=== PATIENT | female | born 1965 ===

== ENCOUNTER 2017-09-09 17:42 | Inpatient (IN) ==
[2017-09-09] MEDS ORDERED: MORPHINE 2 MG/1 ML SYRINGE IV PRN (20:34)
[2017-09-09 21:00] LABS: Apearance,Urine CLOUDY (Clear); Bacteria,Urine Many /HPF (Few); Bilirubin,Urine Negative (Negative); Blood, Urine Large mg/dL (Negative); Glucose,Urine (UA) Negative (Negative); Hyaline Casts,Urine 87 /LPF (0-3); Ketones,Urine Negative (Negative); Nitrite,Urine Negative (Negative); Protein,Urine 100 MG/DL; RBC,Urine 22 /HPF (0-4); Squamous Epithelial Cell,Urine Occasional /HPF (0-10); Urine Color Amber (Yellow); Urine Specific Gravity 1.013 (1.001-1.035); Urine Urobilinogen < 2.0 EU/DL (0.2-1.0); WBC,Urine 1255 /HPF (0-6)
[2017-09-09] MEDS ORDERED: SODIUM CHLORIDE 0.9% 1,000 ML IV SCH (21:00)
[2017-09-09 21:33] LABS: Basophils % 0.2 % (0.0-0.8); Eosinophils # 0.1 10*3/uL (0.0-0.87); Eosinophils % 1.5 % (0.00-10.9); Hematocrit 28.6 VOL% (35.7-47.0); Hemoglobin 9.2 GM/DL (12.0-16.0); Immature Granulocytes % 0.6 %; Immature Granulocytes Absolute 0.04 #; Lymphocytes # 1.1 10*3/uL (1.4-4.0); Lymphocytes % 17.1 % (21.3-54.2); Mean Corpuscular HGB Conc 32.2 GM/DL (32-36); Mean Corpuscular Hemoglobin 31 PG (27-34); Mean Corpuscular Volume 95.7 FL (87-102); Mean Platelet Volume 10.3 FL (9.6-12.0); Monocytes # 0.7 10*3/uL (0.11-0.8); Monocytes % 9.8 % (1.7-12.7); Neutrophils # 4.7 10*3/uL (1.4-7.4); Neutrophils % 70.8 % (38.7-73.9); Platelet Count 217 T/CUMM (130-400); Red Blood Count 2.99 MC/CUMM (3.8-5.5); Red Cell Distribution Width 13.3 % (9.3-17.3); White Blood Count 6.6 T/CUMM (4-12)
[2017-09-09] MEDS ORDERED: DEXTROSE 50% 25 GM/50 ML VIAL IV PRN (21:48)
[2017-09-09] MEDS ORDERED: GLUCAGON 1 MG VIAL IM PRN (21:48)
[2017-09-09 21:58] LABS: Alanine Aminotransferase 29 U/L (13-56); Albumin 2.6 G/DL (3.4-5.0); Alkaline Phosphatase 134 U/L (45-117); Aspartate Amino Transferase 21 U/L (0-37); Bilirubin,Total < 0.39 MG/DL (0.2-1.0); Blood Urea Nitrogen 114 MG/DL (7-18); Calcium 7.2 MG/DL (8.5-10.1); Glucose 131 MG/DL (74-106); Osmolality,Calculated 310.8 MOS/KG (273-304); Potassium 5.3 MMOL/L (3.5-5.1); Sodium 137 MMOL/L (136-145); Total Protein 6.7 G/DL (6.4-8.3)
[2017-09-09] MEDS: SODIUM CHLORIDE 0.9% 1,000 ML IV SCH ×2 (21:59→22:28)
[2017-09-09 22:06] LABS: VLDL CHOLESTEROL 81.2 MG/DL
[2017-09-09] MEDS: INSULIN LISPRO 100 UNIT/ML SUBCUT SCH (22:28)
[2017-09-09] MEDS: ENOXAPARIN 30 MG/0.3 ML SYRINGE SUBCUT SCH (22:31)
[2017-09-10] MEDS: ONDANSETRON 4 MG/2 ML VIAL IV PRN ×2 (00:34→03:49)
[2017-09-10] MEDS: INSULIN LISPRO 100 UNIT/ML SUBCUT SCH ×6 (03:36→21:59)
[2017-09-10] MEDS: SODIUM CHLORIDE 0.9% 1,000 ML IV SCH ×2 (03:49→06:17)
[2017-09-10 05:39] LABS: Basophils % 0.2 % (0.0-0.8); Eosinophils % 0.6 % (0.00-10.9); Hematocrit 27.3 VOL% (35.7-47.0); Hemoglobin 9.1 GM/DL (12.0-16.0); Immature Granulocytes % 0.9 %; Immature Granulocytes Absolute 0.06 #; Lymphocytes % 15.1 % (21.3-54.2); Mean Corpuscular HGB Conc 33.3 GM/DL (32-36); Mean Corpuscular Hemoglobin 31 PG (27-34); Mean Corpuscular Volume 93.5 FL (87-102); Mean Platelet Volume 10.4 FL (9.6-12.0); Monocytes # 0.6 10*3/uL (0.11-0.8); Neutrophils # 4.7 10*3/uL (1.4-7.4); Neutrophils % 74.2 % (38.7-73.9); Platelet Count 225 T/CUMM (130-400); Red Blood Count 2.92 MC/CUMM (3.8-5.5); Red Cell Distribution Width 13.4 % (9.3-17.3); White Blood Count 6.3 T/CUMM (4-12)
[2017-09-10 06:14] LABS: Calcium 7.3 MG/DL (8.5-10.1); Osmolality,Calculated 311.5 MOS/KG (273-304); Potassium 5.4 MMOL/L (3.5-5.1)
[2017-09-10] MEDS: LEVOTHYROXINE 50 MCG TABLET PO SCH (06:17)
[2017-09-10] MEDS ORDERED: SODIUM POLYSTYRENE SULFATE 15 GM/60 ML BOTTLE PO ONE (08:32)
[2017-09-10] MEDS: SODIUM BICARB INJ 100 MEQ in DEXTROSE 5% 1,000 ML IV SCH ×3 (10:32→21:10)
[2017-09-10] MEDS: INSULIN GLARGINE 100 UNIT/ML SUBCUT SCH (10:32)
[2017-09-10] MEDS: PANTOPRAZOLE 40 MG TABLET PO SCH (10:33)
[2017-09-10] MEDS: LEVOTHYROXINE 100 MCG VIAL IV SCH (10:33)
[2017-09-10] MEDS: THIAMINE 200 MG/2 ML VIAL IV SCH (10:35)
[2017-09-10 12:01] LABS: Pt O2 Delivery Device Room Air
[2017-09-10 12:02] LABS: ABG Base Excess -18.2 MMOL/L (-2.5-2.5); ABG Oxygen Saturation 97.6 % (95-100); ABG PCO2 25.7 MM HG (35-48); ABG PO2 143.5 MM HG (80-95); ABG TCO2 9.7 MMOL/L (23-27)
[2017-09-10] MEDS: ENOXAPARIN 30 MG/0.3 ML SYRINGE SUBCUT SCH (21:58)
[2017-09-11] MEDS: INSULIN LISPRO 100 UNIT/ML SUBCUT SCH ×6 (01:32→22:04)
[2017-09-11] MEDS: SODIUM BICARB INJ 100 MEQ in DEXTROSE 5% 1,000 ML IV SCH ×4 (03:18→21:30)
[2017-09-11 05:02] LABS: Basophils % 0.3 % (0.0-0.8); Eosinophils # 0.2 10*3/uL (0.0-0.87); Eosinophils % 3.2 % (0.00-10.9); Hematocrit 22.5 VOL% (35.7-47.0); Hemoglobin 7.6 GM/DL (12.0-16.0); Immature Granulocytes % 0.5 %; Immature Granulocytes Absolute 0.03 #; Lymphocytes # 1.4 10*3/uL (1.4-4.0); Lymphocytes % 21.8 % (21.3-54.2); Mean Corpuscular HGB Conc 33.8 GM/DL (32-36); Mean Corpuscular Hemoglobin 31 PG (27-34); Mean Corpuscular Volume 90.4 FL (87-102); Mean Platelet Volume 12.4 FL (9.6-12.0); Monocytes # 0.8 10*3/uL (0.11-0.8); Monocytes % 11.7 % (1.7-12.7); Neutrophils % 62.5 % (38.7-73.9); Red Blood Count 2.49 MC/CUMM (3.8-5.5); Red Cell Distribution Width 13.1 % (9.3-17.3); White Blood Count 6.5 T/CUMM (4-12)
[2017-09-11 05:18] LABS: Platelet Count 109 T/CUMM (130-400)
[2017-09-11 05:32] LABS: Alanine Aminotransferase 18 U/L (13-56); Alkaline Phosphatase 83 U/L (45-117); Aspartate Amino Transferase 15 U/L (0-37); Bilirubin,Total < 0.39 MG/DL (0.2-1.0); Blood Urea Nitrogen 83 MG/DL (7-18); Calcium 7.2 MG/DL (8.5-10.1); Glucose 133 MG/DL (74-106); Osmolality,Calculated 309.1 MOS/KG (273-304); Potassium 3.5 MMOL/L (3.5-5.1); Sodium 142 MMOL/L (136-145); Total Protein 5.7 G/DL (6.4-8.3)
[2017-09-11 05:38] LABS: Giant Platelets Few; Hypochromasia 1+; Microcytosis Slight; Ovalocytes Slight; Platelet Estimate Decreased
[2017-09-11] MEDS: LEVOTHYROXINE 100 MCG VIAL IV SCH (06:28)
[2017-09-11] MEDS: LEVOTHYROXINE 50 MCG TABLET PO SCH (06:29)
[2017-09-11] MEDS: PANTOPRAZOLE 40 MG TABLET PO SCH (08:17)
[2017-09-11] MEDS: THIAMINE 200 MG/2 ML VIAL IV SCH (08:17)
[2017-09-11] MEDS: INSULIN GLARGINE 100 UNIT/ML SUBCUT SCH (08:17)
[2017-09-11] MEDS ORDERED: GLUCAGON 1 MG VIAL IM PRN (09:34)
[2017-09-11] MEDS ORDERED: DEXTROSE 50% 25 GM/50 ML VIAL IV PRN (09:34)
[2017-09-11] MEDS: amLODIPine 10 MG TABLET PO SCH (10:01)
[2017-09-11] MEDS: cefTRIAXone 1,000 MG in SYRINGE 1 EACH IV SCH (11:27)
[2017-09-11] MEDS ORDERED: diphenhydrAMINE 50 MG/1 ML VIAL IV ONE (13:36)
[2017-09-11 20:17] LABS: Hematocrit 30.1 VOL% (35.7-47.0); Hemoglobin 9.9 GM/DL (12.0-16.0)
[2017-09-11] MEDS: ENOXAPARIN 30 MG/0.3 ML SYRINGE SUBCUT SCH (21:30)
[2017-09-12] MEDS: INSULIN LISPRO 100 UNIT/ML SUBCUT SCH ×6 (03:23→23:19)
[2017-09-12 05:36] LABS: Basophils % 0.6 % (0.0-0.8); Eosinophils # 0.3 10*3/uL (0.0-0.87); Eosinophils % 4.7 % (0.00-10.9); Hematocrit 28.6 VOL% (35.7-47.0); Hemoglobin 9.6 GM/DL (12.0-16.0); Immature Granulocytes % 0.6 %; Immature Granulocytes Absolute 0.04 #; Lymphocytes # 2.2 10*3/uL (1.4-4.0); Lymphocytes % 32.5 % (21.3-54.2); Mean Corpuscular HGB Conc 33.6 GM/DL (32-36); Mean Corpuscular Hemoglobin 30 PG (27-34); Mean Corpuscular Volume 89.9 FL (87-102); Mean Platelet Volume 11.7 FL (9.6-12.0); Monocytes # 0.8 10*3/uL (0.11-0.8); Monocytes % 11.6 % (1.7-12.7); Neutrophils # 3.3 10*3/uL (1.4-7.4); Platelet Count 117 T/CUMM (130-400); Red Blood Count 3.18 MC/CUMM (3.8-5.5); Red Cell Distribution Width 13.5 % (9.3-17.3); White Blood Count 6.6 T/CUMM (4-12)
[2017-09-12 05:58] LABS: Giant Platelets Few; Hypochromasia 1+; Microcytosis Slight; Ovalocytes Slight; Platelet Estimate Decreased
[2017-09-12 06:08] LABS: Albumin 2.3 G/DL (3.4-5.0); Bilirubin,Total 1.1 MG/DL (0.2-1.0); Calcium 7.3 MG/DL (8.5-10.1); Osmolality,Calculated 295.1 MOS/KG (273-304); Potassium 3.3 MMOL/L (3.5-5.1); Total Protein 6.3 G/DL (6.4-8.3)
[2017-09-12] MEDS: SODIUM BICARB INJ 100 MEQ in DEXTROSE 5% 1,000 ML IV SCH (07:24)
[2017-09-12] MEDS: LEVOTHYROXINE 50 MCG TABLET PO SCH (07:24)
[2017-09-12] MEDS: INSULIN GLARGINE 100 UNIT/ML SUBCUT SCH (08:59)
[2017-09-12] MEDS: PANTOPRAZOLE 40 MG TABLET PO SCH (09:03)
[2017-09-12] MEDS: amLODIPine 10 MG TABLET PO SCH (09:03)
[2017-09-12] MEDS: THIAMINE 200 MG/2 ML VIAL IV SCH (09:03)
[2017-09-12] MEDS ORDERED: diphenhydrAMINE 2% CREAM 28 GM TUBE TOP PRN (10:15)
[2017-09-12] MEDS ORDERED: POTASSIUM CHLORIDE 20 MEQ TABLET PO ONE (11:21)
[2017-09-12] MEDS: cefTRIAXone 1,000 MG in SYRINGE 1 EACH IV SCH (11:57)
[2017-09-12] MEDS: ONDANSETRON 4 MG/2 ML VIAL IV PRN (12:07)
[2017-09-12] MEDS: ENOXAPARIN 30 MG/0.3 ML SYRINGE SUBCUT SCH (21:38)
[2017-09-13] MEDS: INSULIN LISPRO 100 UNIT/ML SUBCUT SCH ×4 (04:14→16:38)
[2017-09-13] MEDS: LEVOTHYROXINE 50 MCG TABLET PO SCH (06:03)
[2017-09-13 07:20] LABS: Basophils % 0.4 % (0.0-0.8); Eosinophils # 0.4 10*3/uL (0.0-0.87); Eosinophils % 5.7 % (0.00-10.9); Hematocrit 29.9 VOL% (35.7-47.0); Hemoglobin 10.5 GM/DL (12.0-16.0); Immature Granulocytes % 0.6 %; Immature Granulocytes Absolute 0.04 #; Lymphocytes % 29.6 % (21.3-54.2); Mean Corpuscular HGB Conc 35.1 GM/DL (32-36); Mean Corpuscular Hemoglobin 31 PG (27-34); Mean Corpuscular Volume 87.2 FL (87-102); Mean Platelet Volume 11.5 FL (9.6-12.0); Monocytes # 0.5 10*3/uL (0.11-0.8); Monocytes % 7.6 % (1.7-12.7); Neutrophils # 3.8 10*3/uL (1.4-7.4); Neutrophils % 56.1 % (38.7-73.9); Platelet Count 176 T/CUMM (130-400); Red Blood Count 3.43 MC/CUMM (3.8-5.5); Red Cell Distribution Width 13.4 % (9.3-17.3); White Blood Count 6.8 T/CUMM (4-12)
[2017-09-13 07:54] LABS: Albumin 2.5 G/DL (3.4-5.0); Bilirubin,Total 0.5 MG/DL (0.2-1.0); Calcium 7.8 MG/DL (8.5-10.1); Osmolality,Calculated 286.1 MOS/KG (273-304); Potassium 3.6 MMOL/L (3.5-5.1); Total Protein 6.9 G/DL (6.4-8.3)
[2017-09-13] MEDS: amLODIPine 10 MG TABLET PO SCH (08:19)
[2017-09-13] MEDS: INSULIN GLARGINE 100 UNIT/ML SUBCUT SCH (08:19)
[2017-09-13] MEDS: THIAMINE 200 MG/2 ML VIAL IV SCH (08:19)
[2017-09-13] MEDS: PANTOPRAZOLE 40 MG TABLET PO SCH (08:19)
[2017-09-13] MEDS: cefTRIAXone 1,000 MG in SYRINGE 1 EACH IV SCH (11:51)
[2017-09-13 12:24] VITALS: BP 139/75
== END 2017-09-13 16:40 | disposition home or self-care (01) | DRG 439 ==
LOC: SUATTDRO 19:57 → N.ICU 19:57 → N.5E 09-11 13:28
PROVIDERS: ADMIT Internal Medicine Infectious Disease; ATTEND Internal Medicine

== ENCOUNTER 2019-02-01 16:22 | Inpatient (IN) ==
[2019-02-01] MEDS ORDERED: PIPERACILLIN/TAZOBACTAM 3,375 MG in SODIUM CHLORIDE 0.9% 100 ML IV STA (17:58)
[2019-02-01 17:59] LABS: Basophils % 0.2 % (0.0-0.8); Eosinophils # 0.3 10*3/uL (0.0-0.87); Hematocrit 26.1 VOL% (35.7-47.0); Hemoglobin 8.4 GM/DL (12.0-16.0); Immature Granulocytes % 0.7 %; Immature Granulocytes Absolute 0.09 #; Lymphocytes # 1.3 10*3/uL (1.4-4.0); Lymphocytes % 9.4 % (21.3-54.2); Mean Corpuscular HGB Conc 32.2 GM/DL (32-36); Mean Platelet Volume 9.9 FL (9.6-12.0); Monocytes % 6.4 % (1.7-12.7); Neutrophils % 81.3 % (38.7-73.9); Platelet Count 293 T/CUMM (130-400); Red Blood Count 2.72 MC/CUMM (3.8-5.5); Red Cell Distribution Width 12.6 % (9.3-17.3); White Blood Count 13.4 T/CUMM (4-12)
[2019-02-01 18:18] LABS: Calcium 8.2 MG/DL (8.5-10.1); Osmolality,Calculated 289.7 MOS/KG (273-304); Uric Acid 7.1 MG/DL (2.6-6.0)
[2019-02-01] MEDS ORDERED: DOCUSATE SODIUM 100 MG CAPSULE PO PRN (19:30)
[2019-02-01] MEDS ORDERED: SODIUM CHLORIDE 0.9% 1,000 ML IV SCH (19:30)
[2019-02-01] MEDS ORDERED: ONDANSETRON 4 MG/2 ML VIAL IV PRN (19:30)
[2019-02-01] MEDS ORDERED: MORPHINE 4 MG/1 ML VIAL IV PRN (19:30)
[2019-02-01] MEDS ORDERED: COLCHICINE 0.6 MG CAPSULE PO ONE (19:37)
[2019-02-01] MEDS ORDERED: COLCHICINE 0.6 MG CAPSULE PO SCH (21:00)
[2019-02-01] MEDS ORDERED: VANCOMYCIN INJ 1,000 MG in SODIUM CHLORIDE 0.9% 250 ML IV ONE (22:00)
[2019-02-01] MEDS: ENOXAPARIN 30 MG/0.3 ML SYRINGE SUBCUT SCH (22:30)
[2019-02-02] MEDS ORDERED: PIPERACILLIN/TAZOBACTAM 2,250 MG in SODIUM CHLORIDE 0.9% 100 ML IV SCH (02:00)
[2019-02-02 06:25] LABS: Basophils % 0.3 % (0.0-0.8); Eosinophils # 0.3 10*3/uL (0.0-0.87); Eosinophils % 2.2 % (0.00-10.9); Hemoglobin 7.3 GM/DL (12.0-16.0); Immature Granulocytes % 0.7 %; Immature Granulocytes Absolute 0.09 #; Lymphocytes # 0.8 10*3/uL (1.4-4.0); Lymphocytes % 6.7 % (21.3-54.2); Mean Corpuscular HGB Conc 31.7 GM/DL (32-36); Mean Corpuscular Volume 96.2 FL (87-102); Monocytes % 6.7 % (1.7-12.7); Neutrophils % 83.4 % (38.7-73.9); Platelet Count 254 T/CUMM (130-400); Red Blood Count 2.39 MC/CUMM (3.8-5.5); Red Cell Distribution Width 12.6 % (9.3-17.3); White Blood Count 12.3 T/CUMM (4-12)
[2019-02-02] MEDS: LEVOTHYROXINE 50 MCG TABLET PO SCH (06:33)
[2019-02-02 06:41] LABS: Albumin 1.9 G/DL (3.4-5.0); Bilirubin,Total 0.8 MG/DL (0.2-1.0); Calcium 7.8 MG/DL (8.5-10.1); Osmolality,Calculated 297.4 MOS/KG (273-304); Risk Ratio 2.5; VLDL CHOLESTEROL 23.4 MG/DL
[2019-02-02 07:20] LABS: Amorphous Crystals,Urine Occasional /HPF (Few); Apearance,Urine Slightly Hazy (Clear); Bacteria,Urine Occasional /HPF (Few); Bilirubin,Urine Negative (Negative); Blood, Urine Small mg/dL (Negative); Glucose,Urine (UA) 150 mg/dL (Negative); Ketones,Urine Negative (Negative); Mucus,Urine Occasional /LPF (Occasional); Nitrite,Urine Negative (Negative); Protein,Urine 100 MG/DL; RBC,Urine 7 /HPF (0-4); Squamous Epithelial Cell,Urine Occasional /HPF (0-10); Urine Color Yellow (Yellow); Urine Specific Gravity 1.011 (1.001-1.035); Urine Urobilinogen < 2.0 EU/DL (0.2-1.0); WBC,Urine 161 /HPF (0-6)
[2019-02-02] MEDS: SODIUM BICARB INJ 150 MEQ in STERILE WATER INJ 850 ML IV SCH ×2 (08:10→17:03)
[2019-02-02] MEDS: SUCRALFATE 1 GM/10 ML UDCUP PO SCH ×2 (08:10→16:54)
[2019-02-02] MEDS ORDERED: EPOETIN ALFA 10,000 UNIT/1 ML VIAL SUBCUT ONE (08:11)
[2019-02-02 08:44] LABS: % Iron Saturation 16.3 % (18-50); Ferritin 363.3 ng/ml (8-252)
[2019-02-02 08:51] LABS: Folate 13.8 NG/ML (5.4-24.0)
[2019-02-02] MEDS ORDERED: SODIUM CHLORIDE 0.9% 1,000 ML IV PRN (08:53)
[2019-02-02] MEDS ORDERED: FEBUXOSTAT 80 MG TABLET PO SCH (09:00)
[2019-02-02] MEDS ORDERED: COLCHICINE 0.6 MG CAPSULE PO SCH (09:00)
[2019-02-02] MEDS ORDERED: VANCOMYCIN INJ 1,000 MG in SODIUM CHLORIDE 0.9% 250 ML IV PRN (09:28)
[2019-02-02] MEDS ORDERED: VANCOMYCIN INJ 750 MG in SODIUM CHLORIDE 0.9% 250 ML IV SCH (09:30)
[2019-02-02 10:44] LABS: Protein/Creatinine Ratio,Urine 4.9 RATIO
[2019-02-02] MEDS: cefTRIAXone 2,000 MG in SYRINGE 1 EACH IV SCH (10:50)
[2019-02-02] MEDS: CALCIUM CARBONATE CHEW 500 MG TABLET PO SCH ×3 (10:57→21:42)
[2019-02-02] MEDS ORDERED: DEXTROSE 10% 250 ML BAG IV PRN (14:03)
[2019-02-02] MEDS ORDERED: GLUCAGON 1 MG VIAL IM PRN (14:03)
[2019-02-02] MEDS: CLINDAMYCIN INJ 600 MG in PREMIX 1 EACH IV SCH ×2 (14:43→22:20)
[2019-02-02] MEDS: INSULIN REGULAR 100 UNIT/ML SUBCUT SCH ×2 (16:54→21:43)
[2019-02-03 04:42] LABS: Basophils % 0.3 % (0.0-0.8); Eosinophils # 0.3 10*3/uL (0.0-0.87); Eosinophils % 2.6 % (0.00-10.9); Hematocrit 28.3 VOL% (35.7-47.0); Hemoglobin 9.4 GM/DL (12.0-16.0); Immature Granulocytes % 0.5 %; Immature Granulocytes Absolute 0.06 #; Lymphocytes # 1.4 10*3/uL (1.4-4.0); Lymphocytes % 10.6 % (21.3-54.2); Mean Corpuscular HGB Conc 33.2 GM/DL (32-36); Mean Corpuscular Volume 93.1 FL (87-102); Mean Platelet Volume 10.8 FL (9.6-12.0); Monocytes % 7.9 % (1.7-12.7); Neutrophils % 78.1 % (38.7-73.9); Platelet Count 229 T/CUMM (130-400); Red Blood Count 3.04 MC/CUMM (3.8-5.5); Red Cell Distribution Width 13.1 % (9.3-17.3); White Blood Count 12.9 T/CUMM (4-12)
[2019-02-03 05:20] LABS: Calcium 8.1 MG/DL (8.5-10.1); Osmolality,Calculated 291.1 MOS/KG (273-304)
[2019-02-03] MEDS: CLINDAMYCIN INJ 600 MG in PREMIX 1 EACH IV SCH ×3 (05:28→22:12)
[2019-02-03] MEDS: SODIUM BICARB INJ 150 MEQ in STERILE WATER INJ 850 ML IV SCH (06:48)
[2019-02-03] MEDS ORDERED: MAGNESIUM SULF RIDER 2 GM in PREMIX 1 EACH IV ONE (07:15)
[2019-02-03] MEDS: INSULIN REGULAR 100 UNIT/ML SUBCUT SCH ×4 (08:35→20:36)
[2019-02-03] MEDS ORDERED: VANCOMYCIN INJ 1,000 MG in SODIUM CHLORIDE 0.9% 250 ML IV PRN (09:00)
[2019-02-03] MEDS: cefTRIAXone 2,000 MG in SYRINGE 1 EACH IV SCH (10:51)
[2019-02-03] MEDS: SODIUM CHLORIDE 0.9% 1,000 ML IV SCH ×2 (10:53→20:46)
[2019-02-03] MEDS ORDERED: VANCOMYCIN INJ 1,000 MG in SODIUM CHLORIDE 0.9% 250 ML IV ONE (12:00)
[2019-02-03] MEDS ORDERED: MAGNESIUM HYDROXIDE SUSP 30 ML UDCUP PO PRN (13:13)
[2019-02-03] MEDS ORDERED: SEVOFLURANE 1 UNIT/15 MINUTE INH ONE (13:19)
[2019-02-03] MEDS ORDERED: PROPOFOL 200 MG/20 ML VIAL IV ONE (13:19)
[2019-02-03] MEDS ORDERED: fentaNYL 100 MCG/2 ML VIAL ONE (13:19)
[2019-02-03] MEDS ORDERED: MIDAZOLAM 2 MG/2 ML VIAL ONE (13:19)
[2019-02-03] MEDS: CALCIUM CARBONATE CHEW 500 MG TABLET PO SCH ×3 (14:43→20:36)
[2019-02-03] MEDS: SUCRALFATE 1 GM/10 ML UDCUP PO SCH ×2 (14:43→16:57)
[2019-02-03] MEDS: LEVOTHYROXINE 50 MCG TABLET PO SCH (15:07)
[2019-02-04 05:48] LABS: Basophils # 0.1 10*3/uL (0.0-0.2); Basophils % 0.4 % (0.0-0.8); Eosinophils # 0.3 10*3/uL (0.0-0.87); Eosinophils % 1.9 % (0.00-10.9); Hematocrit 29.9 VOL% (35.7-47.0); Hemoglobin 9.4 GM/DL (12.0-16.0); Immature Granulocytes % 0.9 %; Immature Granulocytes Absolute 0.12 #; Lymphocytes # 1.2 10*3/uL (1.4-4.0); Lymphocytes % 8.9 % (21.3-54.2); Mean Corpuscular HGB Conc 31.4 GM/DL (32-36); Mean Corpuscular Volume 95.5 FL (87-102); Mean Platelet Volume 10.6 FL (9.6-12.0); Monocytes % 8.5 % (1.7-12.7); Neutrophils % 79.4 % (38.7-73.9); Platelet Count 222 T/CUMM (130-400); Red Blood Count 3.13 MC/CUMM (3.8-5.5); Red Cell Distribution Width 13.3 % (9.3-17.3)
[2019-02-04 06:07] LABS: Calcium 7.6 MG/DL (8.5-10.1); Osmolality,Calculated 287.5 MOS/KG (273-304)
[2019-02-04] MEDS: CLINDAMYCIN INJ 600 MG in PREMIX 1 EACH IV SCH (06:15)
[2019-02-04] MEDS: LEVOTHYROXINE 50 MCG TABLET PO SCH (06:16)
[2019-02-04] MEDS: CALCIUM CARBONATE CHEW 500 MG TABLET PO SCH ×3 (09:18→21:47)
[2019-02-04] MEDS: INSULIN REGULAR 100 UNIT/ML SUBCUT SCH ×4 (09:18→21:48)
[2019-02-04] MEDS: SUCRALFATE 1 GM/10 ML UDCUP PO SCH ×2 (09:18→15:42)
[2019-02-04] MEDS: cefTRIAXone 2,000 MG in SYRINGE 1 EACH IV SCH (09:18)
[2019-02-04] MEDS: EPOETIN ALFA 10,000 UNIT/1 ML VIAL SUBCUT SCH (09:19)
[2019-02-04 13:06] LABS: Albumin (UPER) 164.6 MG/DL; Albumin (UPER) Rel% 53.8 %; Alpha 1 (UPER) 30.9 MG/DL; Alpha 1 (UPER) Rel% 10.1 %; Alpha 2 (UPER) 15.6 MG/DL; Alpha 2 (UPER) Rel % 5.1 %; Beta (UPER) 25.7 MG/DL; Beta (UPER) Rel % 8.4 %; Gamma (UPER) 69.2 MG/DL; Gamma (UPER) Rel % 22.6 %
[2019-02-05 05:13] LABS: Basophils % 0.2 % (0.0-0.8); Eosinophils # 0.4 10*3/uL (0.0-0.87); Eosinophils % 3.3 % (0.00-10.9); Hematocrit 28.1 VOL% (35.7-47.0); Hemoglobin 9.1 GM/DL (12.0-16.0); Immature Granulocytes Absolute 0.12 #; Lymphocytes # 1.5 10*3/uL (1.4-4.0); Lymphocytes % 11.7 % (21.3-54.2); Mean Corpuscular HGB Conc 32.4 GM/DL (32-36); Mean Corpuscular Volume 94.6 FL (87-102); Mean Platelet Volume 11.7 FL (9.6-12.0); Monocytes % 7.4 % (1.7-12.7); Neutrophils % 76.4 % (38.7-73.9); Platelet Count 180 T/CUMM (130-400); Red Blood Count 2.97 MC/CUMM (3.8-5.5); Red Cell Distribution Width 13.2 % (9.3-17.3); White Blood Count 12.6 T/CUMM (4-12)
[2019-02-05 05:24] LABS: Calcium 8.2 MG/DL (8.5-10.1); Osmolality,Calculated 281.8 MOS/KG (273-304)
[2019-02-05] MEDS ORDERED: FAMOTIDINE 20 MG TABLET PO ONE (06:00)
[2019-02-05] MEDS ORDERED: POTASSIUM CHLORIDE 20 MEQ TABLET PO ONE (09:00)
[2019-02-05] MEDS: CALCIUM CARBONATE CHEW 500 MG TABLET PO SCH ×3 (09:16→22:39)
[2019-02-05] MEDS: LEVOTHYROXINE 50 MCG TABLET PO SCH (09:17)
[2019-02-05] MEDS: INSULIN REGULAR 100 UNIT/ML SUBCUT SCH ×4 (09:22→22:41)
[2019-02-05] MEDS: SUCRALFATE 1 GM/10 ML UDCUP PO SCH ×2 (09:34→16:23)
[2019-02-05] MEDS: VANCOMYCIN INJ 1,000 MG in SODIUM CHLORIDE 0.9% 250 ML IV SCH (11:02)
[2019-02-05] MEDS: cefTRIAXone 2,000 MG in SYRINGE 1 EACH IV SCH (11:07)
[2019-02-05] MEDS: ENOXAPARIN 30 MG/0.3 ML SYRINGE SUBCUT SCH (22:40)
[2019-02-06 05:01] LABS: Basophils # 0.1 10*3/uL (0.0-0.2); Basophils % 0.5 % (0.0-0.8); Eosinophils # 0.5 10*3/uL (0.0-0.87); Eosinophils % 5.1 % (0.00-10.9); Hematocrit 29.3 VOL% (35.7-47.0); Hemoglobin 9.7 GM/DL (12.0-16.0); Immature Granulocytes % 0.8 %; Immature Granulocytes Absolute 0.07 #; Lymphocytes # 1.2 10*3/uL (1.4-4.0); Lymphocytes % 12.9 % (21.3-54.2); Mean Corpuscular HGB Conc 33.1 GM/DL (32-36); Mean Corpuscular Volume 92.7 FL (87-102); Mean Platelet Volume 10.6 FL (9.6-12.0); Monocytes % 7.4 % (1.7-12.7); Neutrophils % 73.3 % (38.7-73.9); Platelet Count 282 T/CUMM (130-400); Red Blood Count 3.16 MC/CUMM (3.8-5.5); Red Cell Distribution Width 12.9 % (9.3-17.3); White Blood Count 9.2 T/CUMM (4-12)
[2019-02-06 05:31] LABS: Calcium 8.3 MG/DL (8.5-10.1); Osmolality,Calculated 292.3 MOS/KG (273-304)
[2019-02-06] MEDS ORDERED: FAMOTIDINE 20 MG TABLET PO ONE (06:00)
[2019-02-06] MEDS: LEVOTHYROXINE 50 MCG TABLET PO SCH (06:35)
[2019-02-06] MEDS: INSULIN REGULAR 100 UNIT/ML SUBCUT SCH ×4 (08:33→20:55)
[2019-02-06] MEDS: SUCRALFATE 1 GM/10 ML UDCUP PO SCH ×2 (08:34→16:35)
[2019-02-06] MEDS ORDERED: cefTRIAXone 2,000 MG in SODIUM CHLORIDE 0.9% 100 ML IV SCH (09:00)
[2019-02-06] MEDS ORDERED: BUPIVACAINE 0.5% 50 ML VIAL ONE (11:04)
[2019-02-06] MEDS ORDERED: LACTATED RINGERS 1,000 ML IV SCH (11:30)
[2019-02-06] MEDS: CALCIUM CARBONATE CHEW 500 MG TABLET PO SCH ×3 (11:31→20:46)
[2019-02-06] MEDS ORDERED: PROPOFOL 200 MG/20 ML VIAL IV ONE (13:03)
[2019-02-06] MEDS ORDERED: SEVOFLURANE 1 UNIT/15 MINUTE INH ONE (13:03)
[2019-02-06] MEDS ORDERED: fentaNYL 100 MCG/2 ML VIAL ONE (13:03)
[2019-02-06] MEDS ORDERED: ONDANSETRON 4 MG/2 ML VIAL ONE (13:03)
[2019-02-06] MEDS ORDERED: MIDAZOLAM 2 MG/2 ML VIAL ONE (13:03)
[2019-02-06] MEDS ORDERED: ALBUTEROL INHALER 8 GM INH ONE (13:04)
[2019-02-06] MEDS ORDERED: SUCCINYLCHOLINE 200 MG/10 ML VIAL ONE (13:04)
[2019-02-06] MEDS ORDERED: ROCURONIUM 100 MG/10 ML VIAL IV ONE (13:04)
[2019-02-06] MEDS: EPOETIN ALFA 10,000 UNIT/1 ML VIAL SUBCUT SCH (14:08)
[2019-02-07 05:39] LABS: Basophils % 0.5 % (0.0-0.8); Eosinophils # 0.5 10*3/uL (0.0-0.87); Eosinophils % 5.6 % (0.00-10.9); Hematocrit 30.1 VOL% (35.7-47.0); Hemoglobin 9.8 GM/DL (12.0-16.0); Immature Granulocytes % 0.5 %; Immature Granulocytes Absolute 0.04 #; Lymphocytes # 1.4 10*3/uL (1.4-4.0); Lymphocytes % 16.4 % (21.3-54.2); Mean Corpuscular HGB Conc 32.6 GM/DL (32-36); Mean Corpuscular Volume 94.1 FL (87-102); Mean Platelet Volume 10.5 FL (9.6-12.0); Monocytes % 7.3 % (1.7-12.7); Neutrophils % 69.7 % (38.7-73.9); Platelet Count 307 T/CUMM (130-400); Red Cell Distribution Width 13.1 % (9.3-17.3); White Blood Count 8.2 T/CUMM (4-12)
[2019-02-07 06:08] LABS: Calcium 8.4 MG/DL (8.5-10.1); Osmolality,Calculated 293.7 MOS/KG (273-304)
[2019-02-07] MEDS: CALCIUM CARBONATE CHEW 500 MG TABLET PO SCH ×3 (08:59→21:11)
[2019-02-07] MEDS: SUCRALFATE 1 GM/10 ML UDCUP PO SCH ×2 (08:59→16:30)
[2019-02-07] MEDS: INSULIN REGULAR 100 UNIT/ML SUBCUT SCH ×4 (09:00→21:11)
[2019-02-07] MEDS: LEVOTHYROXINE 50 MCG TABLET PO SCH (09:00)
[2019-02-07] MEDS ORDERED: MAGNESIUM SULF RIDER 2 GM in PREMIX 1 EACH IV ONE (18:24)
[2019-02-07] MEDS: ENOXAPARIN 30 MG/0.3 ML SYRINGE SUBCUT SCH (21:11)
[2019-02-07] MEDS: hydrALAZINE 20 MG/1 ML VIAL IV PRN (21:12)
[2019-02-08 05:47] LABS: Basophils # 0.1 10*3/uL (0.0-0.2); Basophils % 0.6 % (0.0-0.8); Eosinophils # 0.4 10*3/uL (0.0-0.87); Hematocrit 30.6 VOL% (35.7-47.0); Hemoglobin 9.9 GM/DL (12.0-16.0); Immature Granulocytes % 0.6 %; Immature Granulocytes Absolute 0.05 #; Lymphocytes # 1.7 10*3/uL (1.4-4.0); Lymphocytes % 22.5 % (21.3-54.2); Mean Corpuscular HGB Conc 32.4 GM/DL (32-36); Mean Corpuscular Volume 94.7 FL (87-102); Mean Platelet Volume 10.4 FL (9.6-12.0); Monocytes % 8.4 % (1.7-12.7); Neutrophils % 62.9 % (38.7-73.9); Platelet Count 301 T/CUMM (130-400); Red Blood Count 3.23 MC/CUMM (3.8-5.5); Red Cell Distribution Width 13.1 % (9.3-17.3); White Blood Count 7.7 T/CUMM (4-12)
[2019-02-08 05:58] LABS: Calcium 8.3 MG/DL (8.5-10.1); Osmolality,Calculated 287.3 MOS/KG (273-304)
[2019-02-08] MEDS ORDERED: FAMOTIDINE 20 MG TABLET PO ONE (06:00)
[2019-02-08] MEDS ORDERED: DIAZEPAM 5 MG TABLET PO ONE (06:00)
[2019-02-08 06:12] LABS: Eosinophils 3 % (0-10); Lymphocytes 16 % (20-55); Segmented Neutrophils 75 % (50-85); Total Cells Counted 100
[2019-02-08 06:13] LABS: Hypochromasia 1+; Platelet Estimate Normal
[2019-02-08] MEDS ORDERED: LIDOCAINE 1% 20 ML VIAL ONE (09:55)
[2019-02-08] MEDS ORDERED: LACTATED RINGERS 1,000 ML IV SCH (10:30)
[2019-02-08] MEDS ORDERED: fentaNYL 100 MCG/2 ML VIAL ONE (11:32)
[2019-02-08] MEDS ORDERED: PROPOFOL 200 MG/20 ML VIAL IV ONE (11:32)
[2019-02-08] MEDS ORDERED: MIDAZOLAM 2 MG/2 ML VIAL ONE (11:33)
[2019-02-08] MEDS ORDERED: KETAMINE 500 MG/10 ML VIAL ONE (11:33)
[2019-02-08] MEDS ORDERED: DEXTROSE 50% 25 GM/50 ML VIAL IV PRN (14:14)
[2019-02-08] MEDS: CALCIUM CARBONATE CHEW 500 MG TABLET PO SCH ×3 (14:24→20:56)
[2019-02-08] MEDS: INSULIN REGULAR 100 UNIT/ML SUBCUT SCH ×4 (14:24→20:56)
[2019-02-08] MEDS: SUCRALFATE 1 GM/10 ML UDCUP PO SCH ×2 (14:24→17:08)
[2019-02-08] MEDS: LEVOTHYROXINE 50 MCG TABLET PO SCH (14:24)
[2019-02-08] MEDS: VANCOMYCIN INJ 1,000 MG in SODIUM CHLORIDE 0.9% 250 ML IV SCH (14:25)
[2019-02-08] MEDS: EPOETIN ALFA 10,000 UNIT/1 ML VIAL SUBCUT SCH ×2 (14:30→17:07)
[2019-02-08] MEDS: ENOXAPARIN 30 MG/0.3 ML SYRINGE SUBCUT SCH (20:56)
[2019-02-09 06:03] LABS: Calcium 8.4 MG/DL (8.5-10.1)
[2019-02-09 06:05] LABS: Basophils % 0.4 % (0.0-0.8); Eosinophils # 0.3 10*3/uL (0.0-0.87); Eosinophils % 4.3 % (0.00-10.9); Hematocrit 29.5 VOL% (35.7-47.0); Hemoglobin 9.4 GM/DL (12.0-16.0); Immature Granulocytes % 0.5 %; Immature Granulocytes Absolute 0.04 #; Lymphocytes # 1.8 10*3/uL (1.4-4.0); Lymphocytes % 23.2 % (21.3-54.2); Mean Corpuscular HGB Conc 31.9 GM/DL (32-36); Mean Corpuscular Volume 95.5 FL (87-102); Monocytes % 7.6 % (1.7-12.7); Platelet Count 271 T/CUMM (130-400); Red Blood Count 3.09 MC/CUMM (3.8-5.5); Red Cell Distribution Width 13.2 % (9.3-17.3); White Blood Count 7.9 T/CUMM (4-12)
[2019-02-09] MEDS: LEVOTHYROXINE 50 MCG TABLET PO SCH (06:19)
[2019-02-09 07:49] LABS: Band Neutrophils 4 % (0-10); Eosinophils 2 % (0-10); Hypochromasia 2+; Lymphocytes 21 % (20-55); Platelet Estimate Normal; Segmented Neutrophils 68 % (50-85); Total Cells Counted 100
[2019-02-09] MEDS: INSULIN REGULAR 100 UNIT/ML SUBCUT SCH ×4 (07:57→22:46)
[2019-02-09] MEDS: CALCIUM CARBONATE CHEW 500 MG TABLET PO SCH ×3 (09:11→22:47)
[2019-02-09] MEDS: SUCRALFATE 1 GM/10 ML UDCUP PO SCH ×2 (09:11→15:49)
[2019-02-09] MEDS: ACETAMINOPHEN 325 MG TABLET PO PRN ×2 (09:11→15:49)
[2019-02-09] MEDS: ENOXAPARIN 30 MG/0.3 ML SYRINGE SUBCUT SCH (22:48)
[2019-02-10] MEDS: CALCIUM CARBONATE CHEW 500 MG TABLET PO SCH ×3 (09:50→22:17)
[2019-02-10] MEDS: INSULIN REGULAR 100 UNIT/ML SUBCUT SCH ×4 (09:50→22:17)
[2019-02-10] MEDS: SUCRALFATE 1 GM/10 ML UDCUP PO SCH ×2 (09:50→15:46)
[2019-02-10] MEDS: LEVOTHYROXINE 50 MCG TABLET PO SCH (09:52)
[2019-02-10] MEDS: hydrALAZINE 20 MG/1 ML VIAL IV PRN (13:07)
[2019-02-10] MEDS: ACETAMINOPHEN 325 MG TABLET PO PRN (13:13)
[2019-02-10] MEDS ORDERED: LIDOCAINE 1% 20 ML VIAL ONE (14:12)
[2019-02-10] MEDS ORDERED: PROPOFOL 200 MG/20 ML VIAL IV ONE (15:04)
[2019-02-10] MEDS ORDERED: SEVOFLURANE 1 UNIT/15 MINUTE INH ONE (15:04)
[2019-02-10] MEDS ORDERED: MIDAZOLAM 2 MG/2 ML VIAL ONE (15:05)
[2019-02-10] MEDS ORDERED: DEXAMETHASONE 4 MG/1 ML VIAL ONE (15:05)
[2019-02-10] MEDS ORDERED: SODIUM CHLORIDE 0.9% 250 ML IV ONE (15:05)
[2019-02-10] MEDS ORDERED: ONDANSETRON 4 MG/2 ML VIAL ONE (15:05)
[2019-02-10] MEDS ORDERED: fentaNYL 100 MCG/2 ML VIAL ONE (15:05)
[2019-02-10] MEDS ORDERED: DEXTROSE 50% 25 GM/50 ML VIAL IV PRN (16:37)
[2019-02-10] MEDS ORDERED: GLUCAGON 1 MG VIAL IM PRN (16:37)
[2019-02-10] MEDS: ENOXAPARIN 30 MG/0.3 ML SYRINGE SUBCUT SCH (22:17)
[2019-02-11 05:57] LABS: Basophils % 0.3 % (0.0-0.8); Hematocrit 33.9 VOL% (35.7-47.0); Hemoglobin 11.1 GM/DL (12.0-16.0); Immature Granulocytes % 0.5 %; Immature Granulocytes Absolute 0.04 #; Lymphocytes % 12.5 % (21.3-54.2); Mean Corpuscular HGB Conc 32.7 GM/DL (32-36); Mean Corpuscular Volume 93.1 FL (87-102); Monocytes % 4.1 % (1.7-12.7); Neutrophils % 82.6 % (38.7-73.9); Platelet Count 354 T/CUMM (130-400); Red Blood Count 3.64 MC/CUMM (3.8-5.5); White Blood Count 7.6 T/CUMM (4-12)
[2019-02-11 06:05] LABS: Calcium 8.6 MG/DL (8.5-10.1); Osmolality,Calculated 292.4 MOS/KG (273-304)
[2019-02-11] MEDS: LEVOTHYROXINE 50 MCG TABLET PO SCH (06:17)
[2019-02-11] MEDS: INSULIN REGULAR 100 UNIT/ML SUBCUT SCH ×4 (08:07→20:48)
[2019-02-11] MEDS: hydrALAZINE 20 MG/1 ML VIAL IV PRN (08:07)
[2019-02-11] MEDS: SUCRALFATE 1 GM/10 ML UDCUP PO SCH ×2 (08:08→16:35)
[2019-02-11] MEDS: CALCIUM CARBONATE CHEW 500 MG TABLET PO SCH ×3 (08:08→20:48)
[2019-02-11] MEDS: VANCOMYCIN INJ 1,000 MG in SODIUM CHLORIDE 0.9% 250 ML IV SCH (08:08)
[2019-02-11] MEDS: EPOETIN ALFA 10,000 UNIT/1 ML VIAL SUBCUT SCH (08:10)
[2019-02-11] MEDS: ACETAMINOPHEN 325 MG TABLET PO PRN (20:04)
[2019-02-11] MEDS: ENOXAPARIN 30 MG/0.3 ML SYRINGE SUBCUT SCH (20:48)
[2019-02-12] MEDS: LEVOTHYROXINE 50 MCG TABLET PO SCH (06:11)
[2019-02-12 07:45] LABS: Basophils % 0.5 % (0.0-0.8); Eosinophils # 0.4 10*3/uL (0.0-0.87); Eosinophils % 5.7 % (0.00-10.9); Hematocrit 31.2 VOL% (35.7-47.0); Immature Granulocytes % 0.4 %; Immature Granulocytes Absolute 0.03 #; Lymphocytes % 27.6 % (21.3-54.2); Mean Corpuscular HGB Conc 32.1 GM/DL (32-36); Mean Platelet Volume 10.5 FL (9.6-12.0); Monocytes % 7.5 % (1.7-12.7); Neutrophils % 58.3 % (38.7-73.9); Platelet Count 338 T/CUMM (130-400); Red Blood Count 3.32 MC/CUMM (3.8-5.5); Red Cell Distribution Width 13.2 % (9.3-17.3); White Blood Count 7.3 T/CUMM (4-12)
[2019-02-12 07:59] LABS: Calcium 8.4 MG/DL (8.5-10.1); Osmolality,Calculated 285.5 MOS/KG (273-304)
[2019-02-12] MEDS: INSULIN REGULAR 100 UNIT/ML SUBCUT SCH ×4 (08:51→21:27)
[2019-02-12] MEDS: SUCRALFATE 1 GM/10 ML UDCUP PO SCH ×2 (08:51→16:48)
[2019-02-12] MEDS: hydrALAZINE 20 MG/1 ML VIAL IV PRN (08:51)
[2019-02-12] MEDS: CALCIUM CARBONATE CHEW 500 MG TABLET PO SCH ×3 (08:52→21:20)
[2019-02-12] MEDS ORDERED: hydrALAZINE 20 MG/1 ML VIAL IV ONE (12:30)
[2019-02-12] MEDS: hydrALAZINE 25 MG TABLET PO SCH (21:20)
[2019-02-12] MEDS: ENOXAPARIN 30 MG/0.3 ML SYRINGE SUBCUT SCH (21:21)
[2019-02-13] MEDS: ACETAMINOPHEN 325 MG TABLET PO PRN (00:13)
[2019-02-13] MEDS ORDERED: METHOCARBAMOL 500 MG TABLET PO PRN (00:31)
[2019-02-13 05:11] LABS: Basophils # 0.1 10*3/uL (0.0-0.2); Basophils % 0.9 % (0.0-0.8); Eosinophils # 0.4 10*3/uL (0.0-0.87); Eosinophils % 6.3 % (0.00-10.9); Hematocrit 30.8 VOL% (35.7-47.0); Hemoglobin 9.9 GM/DL (12.0-16.0); Immature Granulocytes Absolute 0.07 #; Lymphocytes # 1.6 10*3/uL (1.4-4.0); Lymphocytes % 23.7 % (21.3-54.2); Mean Corpuscular HGB Conc 32.1 GM/DL (32-36); Mean Corpuscular Volume 94.2 FL (87-102); Mean Platelet Volume 10.5 FL (9.6-12.0); Monocytes % 7.9 % (1.7-12.7); Neutrophils % 60.2 % (38.7-73.9); Platelet Count 342 T/CUMM (130-400); Red Blood Count 3.27 MC/CUMM (3.8-5.5); Red Cell Distribution Width 13.2 % (9.3-17.3); White Blood Count 6.8 T/CUMM (4-12)
[2019-02-13 05:16] LABS: Calcium 8.7 MG/DL (8.5-10.1); Osmolality,Calculated 289.3 MOS/KG (273-304)
[2019-02-13] MEDS: LEVOTHYROXINE 50 MCG TABLET PO SCH (06:25)
[2019-02-13] MEDS ORDERED: POTASSIUM CHLORIDE 20 MEQ TABLET PO PRN (08:21)
[2019-02-13] MEDS ORDERED: MAGNESIUM SULF RIDER 4 GM in PREMIX 1 EACH IV PRN (08:21)
[2019-02-13] MEDS ORDERED: MAGNESIUM SULF RIDER 2 GM in PREMIX 1 EACH IV PRN (08:21)
[2019-02-13] MEDS: INSULIN REGULAR 100 UNIT/ML SUBCUT SCH ×2 (08:51→13:09)
[2019-02-13] MEDS: EPOETIN ALFA 10,000 UNIT/1 ML VIAL SUBCUT SCH (08:55)
[2019-02-13] MEDS: SUCRALFATE 1 GM/10 ML UDCUP PO SCH ×2 (08:56→16:34)
[2019-02-13] MEDS: CALCIUM CARBONATE CHEW 500 MG TABLET PO SCH ×2 (08:56→16:34)
[2019-02-13] MEDS: hydrALAZINE 25 MG TABLET PO SCH (08:56)
[2019-02-13] MEDS: hydrALAZINE 20 MG/1 ML VIAL IV PRN (12:31)
[2019-02-13 16:08] VITALS: BP 172/92
== END 2019-02-13 17:25 | disposition home or self-care (01) | DRG 464 ==
LOC: EDBD → EDUNIT# → N.ED 16:22 → N.2E 19:39 → SUATTDRO 19:39 → N.2E 19:47
PROVIDERS: ADMIT Internal Medicine; ATTEND Internal Medicine

== ENCOUNTER 2019-12-02 10:17 | Inpatient (IN) ==
[2019-12-02] MEDS ORDERED: ONDANSETRON 4 MG/2 ML VIAL IV PRN (14:36)
[2019-12-02] MEDS ORDERED: GLUCAGON 1 MG VIAL IM PRN (14:36)
[2019-12-02] MEDS ORDERED: ACETAMINOPHEN 325 MG TABLET PO PRN (14:36)
[2019-12-02] MEDS ORDERED: DEXTROSE 10% 250 ML BAG IV PRN (14:36)
[2019-12-02] MEDS ORDERED: DEXTROSE 50% 25 GM/50 ML VIAL IV PRN (15:38)
[2019-12-02 16:03] LABS: Calcium 7.2 MG/DL (8.5-10.1)
[2019-12-02 16:06] LABS: Basophils # 0.1 10*3/uL (0.0-0.2); Basophils % 0.9 % (0.0-0.8); Eosinophils # 0.4 10*3/uL (0.0-0.87); Eosinophils % 6.5 % (0.00-10.9); Hematocrit 27.5 VOL% (35.7-47.0); Hemoglobin 8.7 GM/DL (12.0-16.0); Immature Granulocytes % 0.4 %; Immature Granulocytes Absolute 0.03 #; Lymphocytes # 1.7 10*3/uL (1.4-4.0); Lymphocytes % 25.6 % (21.3-54.2); Mean Corpuscular HGB Conc 31.6 GM/DL (32-36); Mean Corpuscular Volume 98.6 FL (87-102); Mean Platelet Volume 10.6 FL (9.6-12.0); Monocytes % 8.2 % (1.7-12.7); Neutrophils % 58.4 % (38.7-73.9); Platelet Count 266 T/CUMM (130-400); Red Blood Count 2.79 MC/CUMM (3.8-5.5); White Blood Count 6.8 T/CUMM (4-12)
[2019-12-02] MEDS: PIPERACILLIN/TAZOBACTAM 3,375 MG in SODIUM CHLORIDE 0.9% 100 ML IV SCH ×2 (17:12→23:01)
[2019-12-02] MEDS: INSULIN LISPRO 100 UNIT/ML SUBCUT SCH ×2 (17:13→20:30)
[2019-12-02 17:57] LABS: Apearance,Urine CLEAR (Clear); Bacteria,Urine Many /HPF (Few); Bilirubin,Urine Negative (Negative); Blood, Urine Negative (Negative); Glucose,Urine (UA) 50 mg/dL (Negative); Ketones,Urine Negative (Negative); Nitrite,Urine Negative (Negative); Protein,Urine 100 MG/DL; Squamous Epithelial Cell,Urine Occasional /HPF (0-10); Urine Color Straw (Yellow); Urine Specific Gravity 1.006 (1.001-1.035); Urine Urobilinogen < 2.0 EU/DL (0.2-1.0); WBC,Urine 5 /HPF (0-6)
[2019-12-02] MEDS: hydrALAZINE 25 MG TABLET PO SCH (20:30)
[2019-12-02] MEDS: CALCIUM CARBONATE CHEW 500 MG TABLET PO SCH (20:31)
[2019-12-03 07:00] LABS: Basophils # 0.1 10*3/uL (0.0-0.2); Basophils % 0.8 % (0.0-0.8); Eosinophils # 0.6 10*3/uL (0.0-0.87); Eosinophils % 9.7 % (0.00-10.9); Hematocrit 28.8 VOL% (35.7-47.0); Immature Granulocytes % 0.3 %; Immature Granulocytes Absolute 0.02 #; Lymphocytes # 1.4 10*3/uL (1.4-4.0); Lymphocytes % 23.6 % (21.3-54.2); Mean Corpuscular HGB Conc 31.3 GM/DL (32-36); Mean Corpuscular Volume 97.6 FL (87-102); Mean Platelet Volume 10.4 FL (9.6-12.0); Monocytes % 7.2 % (1.7-12.7); Neutrophils % 58.4 % (38.7-73.9); Platelet Count 290 T/CUMM (130-400); Red Blood Count 2.95 MC/CUMM (3.8-5.5); Red Cell Distribution Width 13.8 % (9.3-17.3); White Blood Count 6.1 T/CUMM (4-12)
[2019-12-03 07:52] LABS: Calcium 7.9 MG/DL (8.5-10.1); Osmolality,Calculated 289.8 MOS/KG (273-304); Risk Ratio 3.28
[2019-12-03] MEDS: LEVOTHYROXINE 50 MCG TABLET PO SCH (08:17)
[2019-12-03] MEDS: hydrALAZINE 25 MG TABLET PO SCH ×2 (08:17→20:47)
[2019-12-03] MEDS: PIPERACILLIN/TAZOBACTAM 3,375 MG in SODIUM CHLORIDE 0.9% 100 ML IV SCH ×3 (09:12→23:24)
[2019-12-03] MEDS: CALCIUM CARBONATE CHEW 500 MG TABLET PO SCH ×3 (09:12→20:46)
[2019-12-03] MEDS: INSULIN LISPRO 100 UNIT/ML SUBCUT SCH ×4 (09:13→20:54)
[2019-12-03] MEDS ORDERED: SODIUM CHLORIDE 0.9% 250 ML IV SCH (10:00)
[2019-12-03] MEDS ORDERED: LIDOCAINE 1% 20 ML VIAL ONE (10:10)
[2019-12-03] MEDS ORDERED: MIDAZOLAM 2 MG/2 ML VIAL ONE (11:09)
[2019-12-03] MEDS ORDERED: fentaNYL 100 MCG/2 ML VIAL ONE (11:09)
[2019-12-03] MEDS ORDERED: propofoL 200 MG/20 ML VIAL IV ONE (11:09)
[2019-12-03] MEDS ORDERED: LIDOCAINE 2% 5 ML VIAL ONE (11:09)
[2019-12-03] MEDS ORDERED: KETAMINE 500 MG/10 ML VIAL ONE (11:09)
[2019-12-03] MEDS ORDERED: ePHEDrine 50 MG/ML AMP ONE (11:10)
[2019-12-04 06:52] LABS: Basophils % 0.6 % (0.0-0.8); Eosinophils # 0.6 10*3/uL (0.0-0.87); Eosinophils % 8.6 % (0.00-10.9); Hematocrit 29.2 VOL% (35.7-47.0); Hemoglobin 9.4 GM/DL (12.0-16.0); Immature Granulocytes % 0.1 %; Immature Granulocytes Absolute 0.01 #; Lymphocytes # 1.4 10*3/uL (1.4-4.0); Lymphocytes % 21.2 % (21.3-54.2); Mean Corpuscular HGB Conc 32.2 GM/DL (32-36); Mean Corpuscular Volume 96.1 FL (87-102); Mean Platelet Volume 10.3 FL (9.6-12.0); Monocytes % 7.8 % (1.7-12.7); Neutrophils % 61.7 % (38.7-73.9); Platelet Count 266 T/CUMM (130-400); Red Blood Count 3.04 MC/CUMM (3.8-5.5); Red Cell Distribution Width 13.7 % (9.3-17.3); White Blood Count 6.8 T/CUMM (4-12)
[2019-12-04] MEDS: LEVOTHYROXINE 50 MCG TABLET PO SCH (07:39)
[2019-12-04] MEDS: INSULIN LISPRO 100 UNIT/ML SUBCUT SCH ×2 (07:43→12:14)
[2019-12-04] MEDS: CALCIUM CARBONATE CHEW 500 MG TABLET PO SCH (08:08)
[2019-12-04] MEDS: PIPERACILLIN/TAZOBACTAM 3,375 MG in SODIUM CHLORIDE 0.9% 100 ML IV SCH (08:08)
[2019-12-04] MEDS: hydrALAZINE 25 MG TABLET PO SCH (08:08)
[2019-12-04 08:59] LABS: Calcium 8.1 MG/DL (8.5-10.1); Osmolality,Calculated 290.5 MOS/KG (273-304)
[2019-12-04] MEDS ORDERED: SODIUM HYPOCHLORITE 0.25% IRRIG 473 ML BOTTLE TOP SCH (13:00)
[2019-12-04 14:00] VITALS: BP 166/69
== END 2019-12-04 15:45 | disposition home or self-care (01) | DRG 617 ==
LOC: N.EDINP 12:11 → SUATTDRO 12:11
PROVIDERS: ADMIT Internal Medicine; ATTEND Family Medicine

== ENCOUNTER 2020-07-13 20:38 | Observation (INO) ==
[2020-07-13 21:28] LABS: Basophils % 0.5 % (0.0-0.8); Eosinophils # 0.5 10*3/uL (0.0-0.87); Eosinophils % 5.9 % (0.00-10.9); Hematocrit 27.2 VOL% (35.7-47.0); Hemoglobin 9.2 GM/DL (12.0-16.0); Immature Granulocytes % 0.9 %; Immature Granulocytes Absolute 0.07 #; Lymphocytes # 1.9 10*3/uL (1.4-4.0); Lymphocytes % 24.8 % (21.3-54.2); Mean Corpuscular HGB Conc 33.8 GM/DL (32-36); Mean Corpuscular Volume 88.3 FL (87-102); Mean Platelet Volume 10.5 FL (9.6-12.0); Monocytes % 9.4 % (1.7-12.7); Neutrophils % 58.5 % (38.7-73.9); Platelet Count 227 T/CUMM (130-400); Red Blood Count 3.08 MC/CUMM (3.8-5.5); Red Cell Distribution Width 13.7 % (9.3-17.3); White Blood Count 7.8 T/CUMM (4-12)
[2020-07-13] MEDS ORDERED: ENOXAPARIN 30 MG/0.3 ML SYRINGE SUBCUT STA (21:31)
[2020-07-13] MEDS ORDERED: cefTRIAXone 1,000 MG in SODIUM CHLORIDE 0.9% 100 ML IV STA (21:32)
[2020-07-13] MEDS ORDERED: ENOXAPARIN 80 MG/0.8 ML SYRINGE SUBCUT ONE (21:47)
[2020-07-13 21:52] LABS: Albumin 2.5 G/DL (3.4-5.0); Bilirubin,Total 0.4 MG/DL (0.2-1.0); Calcium 7.5 MG/DL (8.5-10.1); Osmolality,Calculated 300.7 MOS/KG (273-304); Total Protein 7.7 G/DL (6.4-8.3)
[2020-07-13 22:40] LABS: Sedimentation Rate-Westergren 107 MM/HR (0-30)
[2020-07-13] MEDS ORDERED: GLUCAGON 1 MG VIAL IM PRN (23:47)
[2020-07-13] MEDS ORDERED: DEXTROSE 50% 25 GM/50 ML VIAL IV PRN ×2 (23:47)
[2020-07-14] MEDS ORDERED: VANCOMYCIN INJ 500 MG in SODIUM CHLORIDE 0.9% 100 ML IV PRN (00:42)
[2020-07-14] MEDS ORDERED: VANCOMYCIN INJ 1,250 MG in SODIUM CHLORIDE 0.9% 250 ML IV ONE (02:00)
[2020-07-14 07:19] LABS: Basophils % 0.3 % (0.0-0.8); Eosinophils # 0.4 10*3/uL (0.0-0.87); Eosinophils % 5.7 % (0.00-10.9); Hematocrit 27.4 VOL% (35.7-47.0); Hemoglobin 9.2 GM/DL (12.0-16.0); Immature Granulocytes % 0.9 %; Immature Granulocytes Absolute 0.07 #; Lymphocytes # 1.1 10*3/uL (1.4-4.0); Lymphocytes % 14.6 % (21.3-54.2); Mean Corpuscular HGB Conc 33.6 GM/DL (32-36); Mean Corpuscular Volume 90.7 FL (87-102); Mean Platelet Volume 11.8 FL (9.6-12.0); Monocytes % 6.2 % (1.7-12.7); Neutrophils % 72.3 % (38.7-73.9); Platelet Count 179 T/CUMM (130-400); Red Blood Count 3.02 MC/CUMM (3.8-5.5); Red Cell Distribution Width 13.6 % (9.3-17.3); White Blood Count 7.4 T/CUMM (4-12)
[2020-07-14 08:30] LABS: Alanine Aminotransferase 53 U/L (13-56); Albumin 2.4 G/DL (3.4-5.0); Alkaline Phosphatase 252 U/L (45-117); Aspartate Amino Transferase 11 U/L (0-37); Bilirubin,Total < 0.39 MG/DL (0.2-1.0); Blood Urea Nitrogen 58 MG/DL (7-18); Calcium 7.7 MG/DL (8.5-10.1); Estimated Glom Filtration Rate 10 ML/MIN; Glucose 169 MG/DL (74-106); Osmolality,Calculated 302.1 MOS/KG (273-304); Total Protein 7.2 G/DL (6.4-8.3)
[2020-07-14] MEDS ORDERED: APIXABAN 2.5 MG TABLET PO SCH (09:00)
[2020-07-14] MEDS ORDERED: INFLUENZA VIRUS VACCINE 0.5 ML SYRINGE IM ONE (09:03)
[2020-07-14] MEDS: INSULIN REGULAR 100 UNIT/ML SUBCUT SCH ×4 (09:24→22:25)
[2020-07-14] MEDS ORDERED: SODIUM BICARBONATE 50 MEQ/50 ML VIAL IV ONE (10:04)
[2020-07-14] MEDS ORDERED: SODIUM BICARB INJ 50 MEQ in IV BAG 1 EACH IV ONE (11:00)
[2020-07-14] MEDS: SODIUM HYPOCHLORITE 0.25% IRRIG 473 ML BOTTLE IRRIG SCH (14:39)
[2020-07-14] MEDS ORDERED: ENOXAPARIN 60 MG/0.6 ML SYRINGE SUBCUT SCH (21:00)
[2020-07-15] MEDS: INSULIN REGULAR 100 UNIT/ML SUBCUT SCH ×2 (08:02→12:34)
[2020-07-15] MEDS: SODIUM HYPOCHLORITE 0.25% IRRIG 473 ML BOTTLE IRRIG SCH (08:05)
[2020-07-15 08:48] LABS: Basophils % 0.4 % (0.0-0.8); Eosinophils # 0.6 10*3/uL (0.0-0.87); Eosinophils % 8.6 % (0.00-10.9); Hemoglobin 9.8 GM/DL (12.0-16.0); Immature Granulocytes Absolute 0.07 #; Lymphocytes # 1.6 10*3/uL (1.4-4.0); Lymphocytes % 23.6 % (21.3-54.2); Mean Corpuscular HGB Conc 33.8 GM/DL (32-36); Mean Corpuscular Volume 90.1 FL (87-102); Mean Platelet Volume 10.5 FL (9.6-12.0); Monocytes % 7.6 % (1.7-12.7); Neutrophils % 58.8 % (38.7-73.9); Platelet Count 273 T/CUMM (130-400); Red Blood Count 3.22 MC/CUMM (3.8-5.5); Red Cell Distribution Width 13.7 % (9.3-17.3); White Blood Count 6.7 T/CUMM (4-12)
[2020-07-15 09:20] LABS: Calcium 7.9 MG/DL (8.5-10.1); Osmolality,Calculated 296.1 MOS/KG (273-304)
[2020-07-15] MEDS ORDERED: PIPERACILLIN/TAZOBACTAM 3,375 MG in SODIUM CHLORIDE 0.9% 100 ML IV SCH (10:00)
[2020-07-15 11:42] LABS: PT Patient Result 10.6 SECS (9.8-11.9)
[2020-07-15 12:11] VITALS: BP 158/65
== END 2020-07-15 14:04 | disposition home or self-care (01) ==
LOC: EDBD → EDUNIT# → N.ED 20:38 → N.EDINP 20:38 → N.5E 07-14 08:57
PROVIDERS: ADMIT Internal Medicine; ATTEND Internal Medicine

== ENCOUNTER 2020-12-02 19:29 | Inpatient (IN) ==
[2020-12-02] MEDS ORDERED: PIPERACILLIN/TAZOBACTAM 3,375 MG in SODIUM CHLORIDE 0.9% 100 ML IV STA (21:27)
[2020-12-02] MEDS ORDERED: ONDANSETRON 4 MG/2 ML VIAL IV PRN (22:52)
[2020-12-02] MEDS ORDERED: GLUCAGON 1 MG VIAL IM PRN (22:52)
[2020-12-02] MEDS ORDERED: hydrALAZINE 20 MG/1 ML VIAL IV PRN (22:52)
[2020-12-02] MEDS ORDERED: MORPHINE 4 MG/1 ML VIAL IV PRN (22:52)
[2020-12-02] MEDS ORDERED: DEXTROSE 50% 25 GM/50 ML VIAL IV PRN (22:52)
[2020-12-02] MEDS ORDERED: DOCUSATE SODIUM 100 MG CAPSULE PO PRN (22:52)
[2020-12-02] MEDS ORDERED: ACETAMINOPHEN 325 MG TABLET PO PRN (22:52)
[2020-12-02] MEDS ORDERED: VANCOMYCIN INJ 1,000 MG in SODIUM CHLORIDE 0.9% 250 ML IV PRN (23:00)
[2020-12-02] MEDS ORDERED: VANCOMYCIN INJ 1,000 MG in SODIUM CHLORIDE 0.9% 250 ML IV ONE (23:30)
[2020-12-03 01:35] LABS: Basophils % 0.2 % (0.0-0.8); Eosinophils # 0.4 10*3/uL (0.0-0.87); Eosinophils % 4.4 % (0.00-10.9); Hematocrit 25.9 VOL% (35.7-47.0); Hemoglobin 8.9 GM/DL (12.0-16.0); Immature Granulocytes % 0.3 %; Immature Granulocytes Absolute 0.03 #; Lymphocytes # 0.7 10*3/uL (1.4-4.0); Lymphocytes % 7.6 % (21.3-54.2); Mean Corpuscular HGB Conc 34.4 GM/DL (32-36); Monocytes % 1.6 % (1.7-12.7); Neutrophils % 85.9 % (38.7-73.9); Platelet Count 232 T/CUMM (130-400); Red Blood Count 2.91 MC/CUMM (3.8-5.5); Red Cell Distribution Width 13.8 % (9.3-17.3); White Blood Count 8.6 T/CUMM (4-12)
[2020-12-03 01:48] LABS: INR 1.9; PT Patient Result 20.4 SECS (10.5-12.0)
[2020-12-03 01:56] LABS: Alanine Aminotransferase 23 U/L (13-56); Albumin 2.9 G/DL (3.4-5.0); Alkaline Phosphatase 172 U/L (45-117); Aspartate Amino Transferase 18 U/L (0-37); Bilirubin,Total < 0.39 MG/DL (0.2-1.0); Blood Urea Nitrogen 74 MG/DL (7-18); Calcium 6.5 MG/DL (8.5-10.1); Carbon Dioxide 21 MMOL/L (21-32); Estimated Glom Filtration Rate 8 ML/MIN; Glucose 272 MG/DL (74-106); Osmolality,Calculated 308.5 MOS/KG (273-304); Potassium 3.2 MMOL/L (3.5-5.1); Sodium 139 MMOL/L (136-145); Total Protein 7.7 G/DL (6.4-8.2)
[2020-12-03] MEDS: INSULIN LISPRO 100 UNIT/ML SUBCUT SCH ×4 (08:43→21:46)
[2020-12-03] MEDS ORDERED: POLYVINYL ALCOHOL 1.4% OPH SOLN 15 ML BOTTLE BOTH EYES PRN (09:50)
[2020-12-03] MEDS ORDERED: MORPHINE 4 MG/1 ML VIAL IV PRN ×2 (09:51)
[2020-12-03] MEDS: PIPERACILLIN/TAZOBACTAM 3,375 MG in SODIUM CHLORIDE 0.9% 100 ML IV SCH ×2 (09:54→21:45)
[2020-12-03] MEDS ORDERED: LIDOCAINE 1% 20 ML VIAL ONE (10:12)
[2020-12-03] MEDS ORDERED: LIDOCAINE 2% 5 ML VIAL ONE (10:16)
[2020-12-03] MEDS ORDERED: SODIUM CHLORIDE 0.9% 250 ML IV ONE (10:16)
[2020-12-03] MEDS ORDERED: propofoL 200 MG/20 ML VIAL IV ONE (10:16)
[2020-12-03] MEDS ORDERED: MIDAZOLAM 2 MG/2 ML VIAL ONE (10:16)
[2020-12-03] MEDS ORDERED: fentaNYL 100 MCG/2 ML VIAL ONE (10:16)
[2020-12-03] MEDS ORDERED: KETAMINE 500 MG/10 ML VIAL ONE (10:17)
[2020-12-03] MEDS ORDERED: LACTATED RINGERS 1,000 ML IV SCH (10:30)
[2020-12-03] MEDS ORDERED: PHENYLEPHRINE 1 MG/10 ML SYRINGE IV ONE (10:43)
[2020-12-03] MEDS: SODIUM CHLORIDE 0.9% 1,000 ML IV SCH (12:05)
[2020-12-03] MEDS ORDERED: DEXTROSE 50% 25 GM/50 ML VIAL IV PRN (13:54)
[2020-12-03] MEDS ORDERED: GLUCAGON 1 MG VIAL IM PRN (13:54)
[2020-12-03] MEDS: CALCIUM CARBONATE CHEW 500 MG TABLET PO SCH ×2 (15:35→16:47)
[2020-12-03] MEDS: SODIUM BICARBONATE 650 MG TABLET PO SCH (16:47)
[2020-12-03] MEDS: INSULIN GLARGINE 100 UNIT/ML SUBCUT SCH (21:45)
[2020-12-03] MEDS: hydrALAZINE 25 MG TABLET PO SCH (21:47)
[2020-12-03] MEDS: SIMVASTATIN 10 MG TABLET PO SCH (21:47)
[2020-12-04] MEDS: LEVOTHYROXINE 100 MCG TABLET PO SCH (06:09)
[2020-12-04] MEDS: SODIUM CHLORIDE 0.9% 1,000 ML IV SCH ×2 (06:50→13:35)
[2020-12-04 06:52] LABS: Basophils % 0.6 % (0.0-0.8); Eosinophils # 0.6 10*3/uL (0.0-0.87); Hematocrit 25.2 VOL% (35.7-47.0); Hemoglobin 8.4 GM/DL (12.0-16.0); Immature Granulocytes % 0.4 %; Immature Granulocytes Absolute 0.03 #; Lymphocytes # 0.7 10*3/uL (1.4-4.0); Lymphocytes % 10.6 % (21.3-54.2); Mean Corpuscular HGB Conc 33.3 GM/DL (32-36); Mean Corpuscular Volume 90.3 FL (87-102); Mean Platelet Volume 11.1 FL (9.6-12.0); Monocytes % 7.6 % (1.7-12.7); Neutrophils % 72.8 % (38.7-73.9); Platelet Count 220 T/CUMM (130-400); Red Blood Count 2.79 MC/CUMM (3.8-5.5); Red Cell Distribution Width 13.4 % (9.3-17.3)
[2020-12-04 07:07] LABS: INR 1.5; PT Patient Result 16.7 SECS (10.5-12.0)
[2020-12-04 07:27] LABS: Calcium 6.7 MG/DL (8.5-10.1); Osmolality,Calculated 303.1 MOS/KG (273-304)
[2020-12-04 07:29] LABS: Parathyroid Hormone Intact 254.4 PG/ML (18.4-80.1)
[2020-12-04] MEDS ORDERED: ERGOCALCIFEROL 50,000 UNIT CAPSULE PO SCH (09:00)
[2020-12-04] MEDS ORDERED: VANCOMYCIN INJ 1,000 MG in SODIUM CHLORIDE 0.9% 250 ML IV ONE (09:00)
[2020-12-04] MEDS: SODIUM BICARBONATE 650 MG TABLET PO SCH ×2 (09:06→17:18)
[2020-12-04] MEDS: CALCIUM CARBONATE CHEW 500 MG TABLET PO SCH ×3 (09:06→17:19)
[2020-12-04] MEDS: FERROUS SULFATE 325 MG TABLET PO SCH (09:06)
[2020-12-04] MEDS: hydrALAZINE 25 MG TABLET PO SCH ×2 (09:06→21:23)
[2020-12-04] MEDS: OMEGA 3 ACID ETHYL ESTERS 1 GM CAPSULE PO SCH (09:06)
[2020-12-04] MEDS: MULTIVITAMIN (CENTRUM) TABLET PO SCH (09:06)
[2020-12-04] MEDS: INSULIN LISPRO 100 UNIT/ML SUBCUT SCH ×4 (09:07→21:25)
[2020-12-04] MEDS ORDERED: MAGNESIUM SULF RIDER 2 GM/50 ML PREMIX IV ONE (10:49)
[2020-12-04] MEDS: PIPERACILLIN/TAZOBACTAM 3,375 MG in SODIUM CHLORIDE 0.9% 100 ML IV SCH ×2 (11:38→21:21)
[2020-12-04] MEDS: POTASSIUM CHLORIDE 20 MEQ TABLET PO SCH ×2 (11:43→14:22)
[2020-12-04] MEDS ORDERED: WARFARIN 3 MG TABLET PO SCH (18:00)
[2020-12-04] MEDS: SIMVASTATIN 10 MG TABLET PO SCH (21:23)
[2020-12-04] MEDS: INSULIN GLARGINE 100 UNIT/ML SUBCUT SCH (21:24)
[2020-12-05] MEDS: LEVOTHYROXINE 100 MCG TABLET PO SCH (05:40)
[2020-12-05 06:29] LABS: Basophils % 0.6 % (0.0-0.8); Eosinophils # 0.6 10*3/uL (0.0-0.87); Eosinophils % 8.3 % (0.00-10.9); Hematocrit 25.8 VOL% (35.7-47.0); Hemoglobin 8.5 GM/DL (12.0-16.0); Immature Granulocytes % 0.3 %; Immature Granulocytes Absolute 0.02 #; Lymphocytes % 14.7 % (21.3-54.2); Mean Corpuscular HGB Conc 32.9 GM/DL (32-36); Mean Corpuscular Volume 91.5 FL (87-102); Mean Platelet Volume 11.3 FL (9.6-12.0); Monocytes % 10.7 % (1.7-12.7); Neutrophils % 65.4 % (38.7-73.9); Platelet Count 222 T/CUMM (130-400); Red Blood Count 2.82 MC/CUMM (3.8-5.5); Red Cell Distribution Width 13.5 % (9.3-17.3)
[2020-12-05 06:48] LABS: Calcium 7.4 MG/DL (8.5-10.1); Osmolality,Calculated 298.1 MOS/KG (273-304); Potassium 3.7 MMOL/L (3.5-5.1)
[2020-12-05] MEDS: INSULIN LISPRO 100 UNIT/ML SUBCUT SCH ×2 (07:01→11:08)
[2020-12-05] MEDS ORDERED: POTASSIUM CHLORIDE 20 MEQ TABLET PO ONE (07:27)
[2020-12-05] MEDS ORDERED: VANCOMYCIN INJ 1,000 MG in SODIUM CHLORIDE 0.9% 250 ML IV ONE (09:00)
[2020-12-05] MEDS: CALCIUM CARBONATE CHEW 500 MG TABLET PO SCH (09:09)
[2020-12-05] MEDS: hydrALAZINE 25 MG TABLET PO SCH (09:10)
[2020-12-05] MEDS: OMEGA 3 ACID ETHYL ESTERS 1 GM CAPSULE PO SCH (09:10)
[2020-12-05] MEDS: SODIUM BICARBONATE 650 MG TABLET PO SCH (09:10)
[2020-12-05] MEDS: MULTIVITAMIN (CENTRUM) TABLET PO SCH (09:10)
[2020-12-05] MEDS: SODIUM CHLORIDE 0.9% 1,000 ML IV SCH (10:57)
[2020-12-05] MEDS: FERROUS SULFATE 325 MG TABLET PO SCH (10:58)
[2020-12-05] MEDS: PIPERACILLIN/TAZOBACTAM 3,375 MG in SODIUM CHLORIDE 0.9% 100 ML IV SCH (10:59)
[2020-12-05 11:51] VITALS: BP 160/70
== END 2020-12-05 12:05 | disposition home or self-care (01) | DRG 638 ==
LOC: N.ED 19:29 → N.EDINP 22:47 → N.3E 12-03 10:00
PROVIDERS: ADMIT Internal Medicine; ATTEND Internal Medicine

== ENCOUNTER 2021-02-22 13:45 | Inpatient (IN) ==
[2021-02-22] MEDS ORDERED: MEROPENEM 1,000 MG in SODIUM CHLORIDE 0.9% 100 ML IV STA (14:07)
[2021-02-22] MEDS ORDERED: HYDROmorphone 2 MG/1 ML VIAL IV STA (14:08)
[2021-02-22] MEDS ORDERED: ONDANSETRON 4 MG/2 ML VIAL IV STA (14:08)
[2021-02-22] MEDS ORDERED: VANCOMYCIN INJ 1,500 MG in SODIUM CHLORIDE 0.9% 500 ML IV STA (14:22)
[2021-02-22] MEDS ORDERED: SODIUM CHLORIDE 0.9% 100 ML IV ONE (14:24)
[2021-02-22] MEDS ORDERED: MEROPENEM 1,000 MG VIAL ONE (14:24)
[2021-02-22 14:25] LABS: Basophils % 0.4 % (0.0-0.8); Eosinophils # 0.4 10*3/uL (0.0-0.87); Eosinophils % 5.6 % (0.00-10.9); Hemoglobin 9.7 GM/DL (12.0-16.0); Immature Granulocytes % 0.3 %; Immature Granulocytes Absolute 0.02 #; Lymphocytes # 1.9 10*3/uL (1.4-4.0); Mean Corpuscular HGB Conc 32.3 GM/DL (32-36); Mean Corpuscular Volume 90.9 FL (87-102); Mean Platelet Volume 11.9 FL (9.6-12.0); Monocytes % 10.2 % (1.7-12.7); Neutrophils % 55.5 % (38.7-73.9); Platelet Count 179 T/CUMM (130-400); Red Cell Distribution Width 13.9 % (9.3-17.3); White Blood Count 6.8 T/CUMM (4-12)
[2021-02-22 14:49] LABS: Alanine Aminotransferase 27 U/L (13-56); Albumin 2.9 G/DL (3.4-5.0); Alkaline Phosphatase 160 U/L (45-117); Aspartate Amino Transferase 20 U/L (0-37); Bilirubin,Total < 0.39 MG/DL (0.20-1.00); Blood Urea Nitrogen 94 MG/DL (7-18); Calcium 6.1 MG/DL (8.5-10.1); Carbon Dioxide 17 MMOL/L (21-32); Estimated Glom Filtration Rate 8 ML/MIN; Glucose 70 MG/DL (74-106); Osmolality,Calculated 301.7 MOS/KG (273-304); Potassium 4.1 MMOL/L (3.5-5.1); Sodium 138 MMOL/L (136-145); Total Protein 7.9 G/DL (6.4-8.2)
[2021-02-22] MEDS ORDERED: CALCIUM CHLORIDE 1,000 MG/10 ML SYRINGE IV STA (15:28)
[2021-02-22] MEDS ORDERED: ACETAMINOPHEN 325 MG TABLET PO PRN (15:44)
[2021-02-22] MEDS ORDERED: ONDANSETRON 4 MG/2 ML VIAL IV PRN (15:44)
[2021-02-22] MEDS ORDERED: DEXTROSE 50% 25 GM/50 ML VIAL IV PRN (15:44)
[2021-02-22] MEDS ORDERED: GLUCAGON 1 MG VIAL IM PRN (15:44)
[2021-02-22 15:51] LABS: PT Patient Result 11.6 SECS (10.5-12.0); Partial Thromboplastin Time 30.3 SECS (23.9-33.8)
[2021-02-22] MEDS ORDERED: diphenhydrAMINE 50 MG/1 ML VIAL ONE (16:21)
[2021-02-22] MEDS: INSULIN REGULAR 100 UNIT/ML SUBCUT SCH ×2 (16:27→21:31)
[2021-02-22] MEDS ORDERED: diphenhydrAMINE 50 MG/1 ML VIAL IV STA (16:27)
[2021-02-22] MEDS ORDERED: ENOXAPARIN 30 MG/0.3 ML SYRINGE SUBCUT ONE (17:44)
[2021-02-22] MEDS ORDERED: VANCOMYCIN INJ 1,250 MG in SODIUM CHLORIDE 0.9% 250 ML IV PRN (19:41)
[2021-02-22] MEDS ORDERED: CEFEPIME 1,000 MG in SODIUM CHLORIDE 0.9% 100 ML IV ONE (21:00)
[2021-02-23 05:08] LABS: Basophils % 0.4 % (0.0-0.8); Eosinophils # 0.4 10*3/uL (0.0-0.87); Eosinophils % 6.8 % (0.00-10.9); Hematocrit 25.3 VOL% (35.7-47.0); Hemoglobin 8.2 GM/DL (12.0-16.0); Immature Granulocytes % 0.2 %; Immature Granulocytes Absolute 0.01 #; Lymphocytes # 0.5 10*3/uL (1.4-4.0); Lymphocytes % 9.9 % (21.3-54.2); Mean Corpuscular HGB Conc 32.4 GM/DL (32-36); Mean Corpuscular Volume 91.3 FL (87-102); Mean Platelet Volume 11.2 FL (9.6-12.0); Monocytes % 10.8 % (1.7-12.7); Neutrophils % 71.9 % (38.7-73.9); Platelet Count 185 T/CUMM (130-400); Red Blood Count 2.77 MC/CUMM (3.8-5.5); Red Cell Distribution Width 13.8 % (9.3-17.3); White Blood Count 5.3 T/CUMM (4-12)
[2021-02-23 05:18] LABS: INR 1.1; PT Patient Result 12.2 SECS (10.5-12.0)
[2021-02-23 05:47] LABS: Albumin 2.5 G/DL (3.4-5.0); Bilirubin,Total 0.4 MG/DL (0.20-1.00); Calcium 6.2 MG/DL (8.5-10.1); Osmolality,Calculated 307.4 MOS/KG (273-304); Potassium 4.1 MMOL/L (3.5-5.1)
[2021-02-23] MEDS: CEFEPIME 1,000 MG in SODIUM CHLORIDE 0.9% 100 ML IV SCH (06:12)
[2021-02-23] MEDS ORDERED: CEFEPIME 2,000 MG in SODIUM CHLORIDE 0.9% 100 ML IV ONE (07:00)
[2021-02-23] MEDS: INSULIN REGULAR 100 UNIT/ML SUBCUT SCH ×4 (07:42→22:06)
[2021-02-23] MEDS: PANTOPRAZOLE 40 MG TABLET PO SCH (08:20)
[2021-02-23] MEDS ORDERED: hydrALAZINE 20 MG/1 ML VIAL IV PRN (11:28)
[2021-02-23 12:04] LABS: % Iron Saturation 33.7 % (18-50)
[2021-02-23] MEDS ORDERED: LIDOCAINE 2% 5 ML VIAL ONE (13:34)
[2021-02-23] MEDS ORDERED: propofoL 200 MG/20 ML VIAL IV ONE (13:34)
[2021-02-23] MEDS ORDERED: fentaNYL 100 MCG/2 ML VIAL ONE (13:34)
[2021-02-23] MEDS ORDERED: MIDAZOLAM 2 MG/2 ML VIAL ONE (13:34)
[2021-02-23] MEDS ORDERED: LIDOCAINE 1% 20 ML VIAL ONE (13:43)
[2021-02-23] MEDS ORDERED: BUPIVACAINE MPF 0.25% 30 ML VIAL ONE (13:43)
[2021-02-23] MEDS ORDERED: SODIUM CHLORIDE 0.9% 250 ML IV SCH (14:00)
[2021-02-23 14:37] LABS: Folate 18.75 NG/ML (5.38-24.0)
[2021-02-23] MEDS ORDERED: DEXTROSE 50% 25 GM/50 ML VIAL IV PRN (14:51)
[2021-02-23] MEDS: SODIUM BICARBONATE 650 MG TABLET PO SCH (16:41)
[2021-02-23] MEDS ORDERED: CEFEPIME 1,000 MG in SODIUM CHLORIDE 0.9% 100 ML IV SCH (17:00)
[2021-02-23] MEDS: GABAPENTIN 300 MG CAPSULE PO SCH (20:27)
[2021-02-23] MEDS: hydrALAZINE 25 MG TABLET PO SCH (20:27)
[2021-02-23] MEDS: SIMVASTATIN 10 MG TABLET PO SCH (20:27)
[2021-02-23] MEDS ORDERED: MORPHINE 2 MG/1 ML SYRINGE IV PRN (22:31)
[2021-02-24] MEDS: CEFEPIME 1,000 MG in SODIUM CHLORIDE 0.9% 100 ML IV SCH (05:08)
[2021-02-24] MEDS: LEVOTHYROXINE 88 MCG TABLET PO SCH (06:04)
[2021-02-24 06:05] LABS: Basophils % 0.6 % (0.0-0.8); Eosinophils # 0.5 10*3/uL (0.0-0.87); Eosinophils % 11.1 % (0.00-10.9); Hematocrit 26.4 VOL% (35.7-47.0); Hemoglobin 8.4 GM/DL (12.0-16.0); Immature Granulocytes % 0.2 %; Immature Granulocytes Absolute 0.01 #; Lymphocytes # 1.2 10*3/uL (1.4-4.0); Lymphocytes % 24.5 % (21.3-54.2); Mean Corpuscular HGB Conc 31.8 GM/DL (32-36); Mean Corpuscular Volume 93.3 FL (87-102); Mean Platelet Volume 11.1 FL (9.6-12.0); Neutrophils % 53.6 % (38.7-73.9); Platelet Count 189 T/CUMM (130-400); Red Blood Count 2.83 MC/CUMM (3.8-5.5); White Blood Count 4.8 T/CUMM (4-12)
[2021-02-24 06:27] LABS: Calcium 6.2 MG/DL (8.5-10.1); Osmolality,Calculated 308.4 MOS/KG (273-304); Potassium 4.4 MMOL/L (3.5-5.1)
[2021-02-24 06:32] LABS: Anisocytosis 1+; Band Neutrophils 1 % (0-10); Eosinophils 16 % (0-10); Lymphocytes 20 % (20-55); Platelet Estimate Normal; Segmented Neutrophils 52 % (50-85); Total Cells Counted 100
[2021-02-24 06:33] LABS: Macrocytosis Slight; Smudge Cells Few
[2021-02-24] MEDS ORDERED: CEFEPIME 500 MG in SODIUM CHLORIDE 0.9% 100 ML IV SCH (07:00)
[2021-02-24] MEDS: PANTOPRAZOLE 40 MG TABLET PO SCH (08:30)
[2021-02-24] MEDS: hydrALAZINE 25 MG TABLET PO SCH ×2 (08:30→20:36)
[2021-02-24] MEDS: SODIUM BICARBONATE 650 MG TABLET PO SCH ×2 (08:30→16:26)
[2021-02-24] MEDS: OMEGA 3 ACID ETHYL ESTERS 1 GM CAPSULE PO SCH (08:30)
[2021-02-24] MEDS: FERROUS SULFATE 325 MG TABLET PO SCH (08:30)
[2021-02-24] MEDS: CALCIUM CARBONATE CHEW 500 MG TABLET PO SCH (08:30)
[2021-02-24] MEDS: INSULIN REGULAR 100 UNIT/ML SUBCUT SCH ×4 (09:27→22:04)
[2021-02-24] MEDS ORDERED: HEPARIN DRIP 25,000 UNITS/500 ML PREMIX IV SCH (10:00)
[2021-02-24] MEDS: HEPARIN DRIP 25,000 UNITS/500 ML PREMIX IV SCH (11:34)
[2021-02-24] MEDS: SODIUM HYPOCHLORITE 0.25% IRRIG 473 ML BOTTLE TOP SCH (13:36)
[2021-02-24] MEDS ORDERED: WARFARIN 5 MG TABLET PO SCH (18:00)
[2021-02-24] MEDS: GABAPENTIN 300 MG CAPSULE PO SCH (20:35)
[2021-02-24] MEDS: SIMVASTATIN 10 MG TABLET PO SCH (20:36)
[2021-02-25 05:52] LABS: Basophils % 0.4 % (0.0-0.8); Eosinophils # 0.6 10*3/uL (0.0-0.87); Eosinophils % 11.3 % (0.00-10.9); Hematocrit 24.4 VOL% (35.7-47.0); Lymphocytes # 1.7 10*3/uL (1.4-4.0); Lymphocytes % 31.7 % (21.3-54.2); Mean Corpuscular HGB Conc 32.8 GM/DL (32-36); Mean Corpuscular Volume 91.4 FL (87-102); Mean Platelet Volume 11.1 FL (9.6-12.0); Monocytes % 10.5 % (1.7-12.7); Neutrophils % 46.1 % (38.7-73.9); Platelet Count 172 T/CUMM (130-400); Red Blood Count 2.67 MC/CUMM (3.8-5.5); Red Cell Distribution Width 13.8 % (9.3-17.3); White Blood Count 5.2 T/CUMM (4-12)
[2021-02-25 06:02] LABS: INR 1.1; PT Patient Result 11.8 SECS (10.5-12.0)
[2021-02-25] MEDS: LEVOTHYROXINE 88 MCG TABLET PO SCH (06:02)
[2021-02-25] MEDS: CEFEPIME 1,000 MG in SODIUM CHLORIDE 0.9% 100 ML IV SCH (06:02)
[2021-02-25 06:10] LABS: Calcium 6.2 MG/DL (8.5-10.1); Osmolality,Calculated 288.7 MOS/KG (273-304); Potassium 4.4 MMOL/L (3.5-5.1)
[2021-02-25 06:27] LABS: Band Neutrophils 1 % (0-10); Eosinophils 8 % (0-10); Lymphocytes 32 % (20-55); Total Cells Counted 100
[2021-02-25 06:28] LABS: Platelet Estimate Normal; Segmented Neutrophils 49 % (50-85)
[2021-02-25] MEDS: INSULIN REGULAR 100 UNIT/ML SUBCUT SCH ×2 (07:57→12:19)
[2021-02-25] MEDS: FERROUS SULFATE 325 MG TABLET PO SCH (08:52)
[2021-02-25] MEDS: PANTOPRAZOLE 40 MG TABLET PO SCH (08:52)
[2021-02-25] MEDS: CALCIUM CARBONATE CHEW 500 MG TABLET PO SCH (08:52)
[2021-02-25] MEDS ORDERED: hydrALAZINE 25 MG TABLET PO SCH (09:00)
[2021-02-25] MEDS: SODIUM HYPOCHLORITE 0.25% IRRIG 473 ML BOTTLE TOP SCH (09:02)
[2021-02-25] MEDS: SODIUM BICARBONATE 650 MG TABLET PO SCH (09:02)
[2021-02-25] MEDS: HEPARIN DRIP 25,000 UNITS/500 ML PREMIX IV SCH (09:47)
[2021-02-25] MEDS ORDERED: BUTALBITAL/ACETAMIN/CAFFEINE 50-325-40 MG TABLET PO ONE ×2 (10:35→14:30)
[2021-02-25] MEDS: OMEGA 3 ACID ETHYL ESTERS 1 GM CAPSULE PO SCH (12:18)
[2021-02-25 12:36] VITALS: BP 125/50
== END 2021-02-25 15:35 | disposition home or self-care (01) | DRG 988 ==
LOC: N.ED 13:45 → N.EDINP 15:44 → SUATTDRO 15:44 → N.EDINP 19:33 → N.3E 19:56
PROVIDERS: ADMIT Internal Medicine; ATTEND Internal Medicine

== ENCOUNTER 2021-05-17 17:55 | Inpatient (IN) ==
[2021-05-17] MEDS ORDERED: VANCOMYCIN INJ 1,000 MG in SODIUM CHLORIDE 0.9% 250 ML IV STA (22:21)
[2021-05-17] MEDS ORDERED: methylPREDNISolone SOD SUC 125 MG/2 ML VIAL IV STA (22:55)
[2021-05-17] MEDS ORDERED: PIPERACILLIN/TAZOBACTAM 3,375 MG in SODIUM CHLORIDE 0.9% 100 ML IV STA (22:55)
[2021-05-17] MEDS ORDERED: diphenhydrAMINE 50 MG/1 ML VIAL IV STA (22:55)
[2021-05-18] MEDS ORDERED: DEXTROSE 50% 25 GM/50 ML VIAL IV PRN ×2 (00:02→14:43)
[2021-05-18] MEDS ORDERED: GLUCAGON 1 MG VIAL IM PRN (00:02)
[2021-05-18] MEDS ORDERED: ACETAMINOPHEN 325 MG TABLET PO PRN (00:03)
[2021-05-18] MEDS ORDERED: hydrALAZINE 20 MG/1 ML VIAL IV PRN (00:03)
[2021-05-18] MEDS ORDERED: ONDANSETRON 4 MG/2 ML VIAL IV PRN (00:03)
[2021-05-18 05:34] LABS: Basophils % 0.3 % (0.0-0.8); Eosinophils % 0.1 % (0.00-10.9); Hematocrit 26.2 VOL% (35.7-47.0); Hemoglobin 8.4 GM/DL (12.0-16.0); Immature Granulocytes % 0.6 %; Immature Granulocytes Absolute 0.05 #; Lymphocytes # 0.5 10*3/uL (1.4-4.0); Lymphocytes % 6.3 % (21.3-54.2); Mean Corpuscular HGB Conc 32.1 GM/DL (32-36); Mean Corpuscular Volume 93.6 FL (87-102); Mean Platelet Volume 10.8 FL (9.6-12.0); Monocytes % 2.1 % (1.7-12.7); Neutrophils % 90.6 % (38.7-73.9); Platelet Count 248 T/CUMM (130-400); Red Cell Distribution Width 14.6 % (9.3-17.3); White Blood Count 7.9 T/CUMM (4-12)
[2021-05-18 05:41] LABS: INR 3.8; PT Patient Result 38.5 SECS (10.5-12.0)
[2021-05-18 06:08] LABS: Osmolality,Calculated 300.5 MOS/KG (273-304); Potassium 3.4 MMOL/L (3.5-5.1); Risk Ratio 3.61; VLDL Cholesterol 33.2 MG/DL
[2021-05-18 06:12] LABS: Eosinophils 1 % (0-10); Hypochromasia Slight; Lymphocytes 4 % (20-55); Platelet Estimate Normal; Segmented Neutrophils 91 % (50-85); Total Cells Counted 100
[2021-05-18] MEDS: INSULIN REGULAR 100 UNIT/ML SUBCUT SCH ×4 (09:23→21:17)
[2021-05-18] MEDS: PIPERACILLIN/TAZOBACTAM 3.375 MG in SODIUM CHLORIDE 0.9% 100 ML IV SCH ×2 (09:24→21:20)
[2021-05-18] MEDS: DOCUSATE SODIUM 100 MG CAPSULE PO SCH ×2 (09:24→21:18)
[2021-05-18] MEDS: PANTOPRAZOLE 40 MG TABLET PO SCH (09:24)
[2021-05-19] MEDS ORDERED: LIDOCAINE 1% 20 ML VIAL ONE (07:53)
[2021-05-19] MEDS: INSULIN REGULAR 100 UNIT/ML SUBCUT SCH ×4 (08:00→22:07)
[2021-05-19 08:28] LABS: Basophils % 0.4 % (0.0-0.8); Eosinophils # 0.3 10*3/uL (0.0-0.87); Eosinophils % 3.4 % (0.00-10.9); Hemoglobin 8.8 GM/DL (12.0-16.0); Immature Granulocytes % 0.5 %; Immature Granulocytes Absolute 0.04 #; Lymphocytes # 1.8 10*3/uL (1.4-4.0); Mean Corpuscular HGB Conc 32.6 GM/DL (32-36); Mean Corpuscular Volume 91.8 FL (87-102); Mean Platelet Volume 10.2 FL (9.6-12.0); Monocytes % 9.3 % (1.7-12.7); Neutrophils % 65.4 % (38.7-73.9); Platelet Count 252 T/CUMM (130-400); Red Blood Count 2.94 MC/CUMM (3.8-5.5); Red Cell Distribution Width 14.6 % (9.3-17.3); White Blood Count 8.4 T/CUMM (4-12)
[2021-05-19 08:37] LABS: INR 3.3
[2021-05-19 08:43] LABS: Calcium 7.4 MG/DL (8.5-10.1); Osmolality,Calculated 301.4 MOS/KG (273-304)
[2021-05-19] MEDS ORDERED: SODIUM CHLORIDE 0.9% 1,000 ML IV PRN (09:03)
[2021-05-19] MEDS ORDERED: POTASSIUM CHLORIDE 20 MEQ TABLET PO ONE (09:04)
[2021-05-19] MEDS: DOCUSATE SODIUM 100 MG CAPSULE PO SCH ×3 (09:17→22:01)
[2021-05-19] MEDS: PANTOPRAZOLE 40 MG TABLET PO SCH (09:17)
[2021-05-19] MEDS: PIPERACILLIN/TAZOBACTAM 3.375 MG in SODIUM CHLORIDE 0.9% 100 ML IV SCH ×2 (09:19→22:08)
[2021-05-19] MEDS: FERROUS SULFATE 325 MG TABLET PO SCH (09:21)
[2021-05-19] MEDS ORDERED: PHYTONADIONE INJ 10 MG in SODIUM CHLORIDE 0.9% 50 ML IV ONE (09:30)
[2021-05-19] MEDS: hydrALAZINE 25 MG TABLET PO SCH ×2 (15:02→22:00)
[2021-05-19] MEDS: SIMVASTATIN 10 MG TABLET PO SCH (22:00)
[2021-05-20 05:27] LABS: INR 1.1; PT Patient Result 12.2 SECS (10.5-12.0)
[2021-05-20 05:38] LABS: Basophils % 0.3 % (0.0-0.8); Eosinophils # 0.6 10*3/uL (0.0-0.87); Eosinophils % 8.7 % (0.00-10.9); Hematocrit 24.9 VOL% (35.7-47.0); Hemoglobin 8.1 GM/DL (12.0-16.0); Immature Granulocytes % 0.5 %; Immature Granulocytes Absolute 0.03 #; Lymphocytes # 1.5 10*3/uL (1.4-4.0); Lymphocytes % 23.2 % (21.3-54.2); Mean Corpuscular HGB Conc 32.5 GM/DL (32-36); Mean Corpuscular Volume 93.3 FL (87-102); Mean Platelet Volume 10.8 FL (9.6-12.0); Monocytes % 10.7 % (1.7-12.7); Neutrophils % 56.6 % (38.7-73.9); Platelet Count 220 T/CUMM (130-400); Red Blood Count 2.67 MC/CUMM (3.8-5.5); Red Cell Distribution Width 14.7 % (9.3-17.3); White Blood Count 6.5 T/CUMM (4-12)
[2021-05-20 05:40] LABS: Calcium 7.2 MG/DL (8.5-10.1); Osmolality,Calculated 303.1 MOS/KG (273-304); Potassium 3.1 MMOL/L (3.5-5.1)
[2021-05-20] MEDS: INSULIN REGULAR 100 UNIT/ML SUBCUT SCH ×4 (08:50→21:40)
[2021-05-20] MEDS: PIPERACILLIN/TAZOBACTAM 3.375 MG in SODIUM CHLORIDE 0.9% 100 ML IV SCH ×2 (08:51→21:39)
[2021-05-20] MEDS ORDERED: POTASSIUM CHLORIDE RIDER 20 MEQ/100 ML PREMIX IV PRN (09:35)
[2021-05-20] MEDS: hydrALAZINE 25 MG TABLET PO SCH ×3 (10:04→21:41)
[2021-05-20] MEDS: DOCUSATE SODIUM 100 MG CAPSULE PO SCH ×2 (10:04→21:40)
[2021-05-20] MEDS: POTASSIUM CHLORIDE 20 MEQ TABLET PO SCH (10:05)
[2021-05-20] MEDS: FERROUS SULFATE 325 MG TABLET PO SCH (10:05)
[2021-05-20] MEDS: PANTOPRAZOLE 40 MG TABLET PO SCH (10:06)
[2021-05-20] MEDS ORDERED: MIDAZOLAM 2 MG/2 ML VIAL ONE (10:33)
[2021-05-20] MEDS ORDERED: propofoL 200 MG/20 ML VIAL IV ONE (10:33)
[2021-05-20] MEDS ORDERED: fentaNYL 100 MCG/2 ML VIAL ONE (10:33)
[2021-05-20] MEDS ORDERED: LIDOCAINE 2% 5 ML VIAL ONE (10:33)
[2021-05-20] MEDS ORDERED: LIDOCAINE 1%/EPI INJ 20 ML VIAL ONE (10:49)
[2021-05-20] MEDS ORDERED: BUPIVACAINE MPF 0.25% 30 ML VIAL ONE (10:49)
[2021-05-20] MEDS ORDERED: LIDOCAINE 1% 50 ML VIAL ONE (10:50)
[2021-05-20] MEDS ORDERED: ETOMIDATE 40 MG/20 ML VIAL IV ONE (10:55)
[2021-05-20] MEDS ORDERED: SEVOFLURANE 1 UNIT/15 MINUTE INH ONE (10:55)
[2021-05-20] MEDS ORDERED: SODIUM CHLORIDE 0.9% 250 ML IV SCH (11:00)
[2021-05-20] MEDS ORDERED: ONDANSETRON 4 MG/2 ML VIAL ONE (11:06)
[2021-05-20] MEDS ORDERED: ePHEDrine 50 MG/ML VIAL ONE (11:07)
[2021-05-20] MEDS ORDERED: ONDANSETRON 4 MG/2 ML VIAL IV PRN (11:31)
[2021-05-20] MEDS ORDERED: diphenhydrAMINE 50 MG/1 ML VIAL IV PRN (11:31)
[2021-05-20] MEDS ORDERED: HYDROmorphone 2 MG/1 ML VIAL IV PRN (11:31)
[2021-05-20] MEDS ORDERED: PROMETHAZINE INJ 25 MG in SODIUM CHLORIDE 0.9% 50 ML IV PRN (11:31)
[2021-05-20] MEDS ORDERED: MEPERIDINE 25 MG/1 ML VIAL IV PRN (11:31)
[2021-05-20] MEDS: POTASSIUM CHLORIDE 20 MEQ TABLET PO PRN ×2 (13:50→16:17)
[2021-05-20] MEDS: SIMVASTATIN 10 MG TABLET PO SCH (21:40)
[2021-05-20] MEDS: WARFARIN 3 MG TABLET PO SCH (21:41)
[2021-05-21 06:24] LABS: Basophils % 0.3 % (0.0-0.8); Eosinophils # 0.5 10*3/uL (0.0-0.87); Eosinophils % 7.7 % (0.00-10.9); Hematocrit 25.7 VOL% (35.7-47.0); Hemoglobin 8.3 GM/DL (12.0-16.0); Immature Granulocytes % 0.3 %; Immature Granulocytes Absolute 0.02 #; Lymphocytes # 1.5 10*3/uL (1.4-4.0); Lymphocytes % 21.5 % (21.3-54.2); Mean Corpuscular HGB Conc 32.3 GM/DL (32-36); Mean Corpuscular Volume 93.5 FL (87-102); Mean Platelet Volume 10.8 FL (9.6-12.0); Monocytes % 11.3 % (1.7-12.7); Neutrophils % 58.9 % (38.7-73.9); Platelet Count 209 T/CUMM (130-400); Red Blood Count 2.75 MC/CUMM (3.8-5.5); Red Cell Distribution Width 14.6 % (9.3-17.3); White Blood Count 6.9 T/CUMM (4-12)
[2021-05-21 06:43] LABS: PT Patient Result 11.4 SECS (10.5-12.0)
[2021-05-21 06:49] LABS: Osmolality,Calculated 292.7 MOS/KG (273-304); Potassium 3.3 MMOL/L (3.5-5.1)
[2021-05-21] MEDS: hydrALAZINE 25 MG TABLET PO SCH ×3 (08:27→21:58)
[2021-05-21] MEDS: PANTOPRAZOLE 40 MG TABLET PO SCH (08:27)
[2021-05-21] MEDS: POTASSIUM CHLORIDE 20 MEQ TABLET PO SCH (08:27)
[2021-05-21] MEDS: DOCUSATE SODIUM 100 MG CAPSULE PO SCH ×2 (08:27→21:58)
[2021-05-21] MEDS: FERROUS SULFATE 325 MG TABLET PO SCH (08:27)
[2021-05-21] MEDS: INSULIN REGULAR 100 UNIT/ML SUBCUT SCH ×4 (08:28→21:58)
[2021-05-21] MEDS: PIPERACILLIN/TAZOBACTAM 3.375 MG in SODIUM CHLORIDE 0.9% 100 ML IV SCH (08:30)
[2021-05-21] MEDS: PIPERACILLIN/TAZOBACTAM 3,375 MG in SODIUM CHLORIDE 0.9% 100 ML IV SCH (21:58)
[2021-05-21] MEDS: SIMVASTATIN 10 MG TABLET PO SCH (21:58)
[2021-05-21] MEDS: WARFARIN 3 MG TABLET PO SCH (21:58)
[2021-05-22 05:44] LABS: Basophils % 0.5 % (0.0-0.8); Eosinophils # 0.6 10*3/uL (0.0-0.87); Eosinophils % 9.4 % (0.00-10.9); Hematocrit 25.2 VOL% (35.7-47.0); Hemoglobin 8.1 GM/DL (12.0-16.0); Immature Granulocytes % 0.3 %; Immature Granulocytes Absolute 0.02 #; Lymphocytes # 1.3 10*3/uL (1.4-4.0); Lymphocytes % 21.3 % (21.3-54.2); Mean Corpuscular HGB Conc 32.1 GM/DL (32-36); Mean Corpuscular Volume 92.6 FL (87-102); Mean Platelet Volume 10.1 FL (9.6-12.0); Monocytes % 9.5 % (1.7-12.7); Platelet Count 210 T/CUMM (130-400); Red Blood Count 2.72 MC/CUMM (3.8-5.5); Red Cell Distribution Width 14.4 % (9.3-17.3); White Blood Count 6.3 T/CUMM (4-12)
[2021-05-22 05:49] LABS: INR 1.2; PT Patient Result 13.1 SECS (10.5-12.0)
[2021-05-22 05:58] LABS: Calcium 7.2 MG/DL (8.5-10.1); Osmolality,Calculated 283.8 MOS/KG (273-304); Potassium 3.2 MMOL/L (3.5-5.1)
[2021-05-22] MEDS: INSULIN REGULAR 100 UNIT/ML SUBCUT SCH ×4 (09:41→20:39)
[2021-05-22] MEDS: FERROUS SULFATE 325 MG TABLET PO SCH (10:12)
[2021-05-22] MEDS: DOCUSATE SODIUM 100 MG CAPSULE PO SCH ×2 (10:12→20:40)
[2021-05-22] MEDS: PANTOPRAZOLE 40 MG TABLET PO SCH (10:13)
[2021-05-22] MEDS: hydrALAZINE 25 MG TABLET PO SCH ×2 (10:13→15:59)
[2021-05-22] MEDS: POTASSIUM CHLORIDE 20 MEQ TABLET PO SCH (10:13)
[2021-05-22] MEDS ORDERED: ENOXAPARIN 80 MG/0.8 ML SYRINGE SUBCUT SCH (10:30)
[2021-05-22] MEDS: PIPERACILLIN/TAZOBACTAM 3,375 MG in SODIUM CHLORIDE 0.9% 100 ML IV SCH ×2 (10:35→20:41)
[2021-05-22] MEDS: SODIUM HYPOCHLORITE 0.25% IRRIG 473 ML BOTTLE TOP SCH (11:21)
[2021-05-22] MEDS: CALCIUM (CARBONATE) 500 MG TABLET PO SCH ×2 (16:49→20:40)
[2021-05-22] MEDS: WARFARIN 3 MG TABLET PO SCH (20:40)
[2021-05-22] MEDS: SIMVASTATIN 10 MG TABLET PO SCH (20:41)
[2021-05-23] MEDS: ENOXAPARIN 80 MG/0.8 ML SYRINGE SUBCUT SCH ×3 (00:45→21:30)
[2021-05-23 06:31] LABS: Basophils % 0.6 % (0.0-0.8); Eosinophils # 0.6 10*3/uL (0.0-0.87); Eosinophils % 9.1 % (0.00-10.9); Hematocrit 25.7 VOL% (35.7-47.0); Hemoglobin 8.4 GM/DL (12.0-16.0); Immature Granulocytes % 0.3 %; Immature Granulocytes Absolute 0.02 #; Lymphocytes # 1.4 10*3/uL (1.4-4.0); Lymphocytes % 22.4 % (21.3-54.2); Mean Corpuscular HGB Conc 32.7 GM/DL (32-36); Mean Corpuscular Volume 92.4 FL (87-102); Mean Platelet Volume 10.7 FL (9.6-12.0); Monocytes % 9.7 % (1.7-12.7); Neutrophils % 57.9 % (38.7-73.9); Platelet Count 221 T/CUMM (130-400); Red Blood Count 2.78 MC/CUMM (3.8-5.5); Red Cell Distribution Width 14.4 % (9.3-17.3); White Blood Count 6.4 T/CUMM (4-12)
[2021-05-23 06:40] LABS: INR 1.5; PT Patient Result 16.7 SECS (10.5-12.0)
[2021-05-23 06:45] LABS: Calcium 7.7 MG/DL (8.5-10.1); Osmolality,Calculated 286.1 MOS/KG (273-304); Potassium 3.3 MMOL/L (3.5-5.1)
[2021-05-23] MEDS: PIPERACILLIN/TAZOBACTAM 3,375 MG in SODIUM CHLORIDE 0.9% 100 ML IV SCH ×2 (09:08→22:59)
[2021-05-23] MEDS: CALCIUM (CARBONATE) 500 MG TABLET PO SCH ×3 (09:09→22:57)
[2021-05-23] MEDS: INSULIN REGULAR 100 UNIT/ML SUBCUT SCH ×4 (09:09→21:30)
[2021-05-23] MEDS: PANTOPRAZOLE 40 MG TABLET PO SCH (09:09)
[2021-05-23] MEDS: FERROUS SULFATE 325 MG TABLET PO SCH (09:09)
[2021-05-23] MEDS: DOCUSATE SODIUM 100 MG CAPSULE PO SCH ×2 (09:09→21:30)
[2021-05-23] MEDS: POTASSIUM CHLORIDE 20 MEQ TABLET PO SCH ×2 (09:09→21:30)
[2021-05-23] MEDS: SODIUM HYPOCHLORITE 0.25% IRRIG 473 ML BOTTLE TOP SCH (09:10)
[2021-05-23] MEDS: WARFARIN 3 MG TABLET PO SCH (21:30)
[2021-05-23] MEDS: SIMVASTATIN 10 MG TABLET PO SCH (21:30)
[2021-05-24 04:48] LABS: Basophils % 0.4 % (0.0-0.8); Eosinophils # 0.6 10*3/uL (0.0-0.87); Eosinophils % 6.2 % (0.00-10.9); Hematocrit 29.1 VOL% (35.7-47.0); Hemoglobin 9.6 GM/DL (12.0-16.0); Immature Granulocytes % 0.4 %; Immature Granulocytes Absolute 0.04 #; Lymphocytes # 1.6 10*3/uL (1.4-4.0); Mean Corpuscular Volume 94.2 FL (87-102); Mean Platelet Volume 10.5 FL (9.6-12.0); Monocytes % 7.2 % (1.7-12.7); Neutrophils % 69.8 % (38.7-73.9); Platelet Count 252 T/CUMM (130-400); Red Blood Count 3.09 MC/CUMM (3.8-5.5); Red Cell Distribution Width 14.6 % (9.3-17.3); White Blood Count 9.8 T/CUMM (4-12)
[2021-05-24 04:58] LABS: INR 1.9; PT Patient Result 20.4 SECS (10.5-12.0)
[2021-05-24 05:20] LABS: Osmolality,Calculated 282.7 MOS/KG (273-304); Potassium 3.2 MMOL/L (3.5-5.1)
[2021-05-24] MEDS: POTASSIUM CHLORIDE 20 MEQ TABLET PO SCH (08:09)
[2021-05-24] MEDS: PIPERACILLIN/TAZOBACTAM 3,375 MG in SODIUM CHLORIDE 0.9% 100 ML IV SCH (08:09)
[2021-05-24] MEDS: FERROUS SULFATE 325 MG TABLET PO SCH (08:09)
[2021-05-24] MEDS: CALCIUM (CARBONATE) 500 MG TABLET PO SCH ×2 (08:09→16:15)
[2021-05-24] MEDS: DOCUSATE SODIUM 100 MG CAPSULE PO SCH (08:09)
[2021-05-24] MEDS: PANTOPRAZOLE 40 MG TABLET PO SCH (08:09)
[2021-05-24] MEDS: SODIUM HYPOCHLORITE 0.25% IRRIG 473 ML BOTTLE TOP SCH (08:10)
[2021-05-24] MEDS: INSULIN REGULAR 100 UNIT/ML SUBCUT SCH ×2 (08:32→11:55)
[2021-05-24] MEDS: ENOXAPARIN 80 MG/0.8 ML SYRINGE SUBCUT SCH (10:30)
[2021-05-24 11:58] VITALS: BP 132/69
== END 2021-05-24 16:15 | disposition home or self-care (01) | DRG 988 ==
LOC: N.ED 17:55 → N.EDINP 05-18 00:02 → SUATTDRO 05-18 00:02 → N.EDINP 05-18 01:41 → N.5E 05-18 02:22
PROVIDERS: ADMIT Internal Medicine; ATTEND Internal Medicine Nephrology

== ENCOUNTER 2021-08-06 08:56 | Inpatient (IN) ==
[2021-08-06] MEDS ORDERED: ONDANSETRON 4 MG/2 ML VIAL IV PRN (14:57)
[2021-08-06] MEDS ORDERED: DOCUSATE SODIUM 100 MG CAPSULE PO PRN (14:57)
[2021-08-06] MEDS ORDERED: ACETAMINOPHEN 325 MG TABLET PO PRN (14:57)
[2021-08-06] MEDS ORDERED: GLUCAGON 1 MG VIAL IM PRN (14:57)
[2021-08-06] MEDS ORDERED: guaiFENesin/DM ER 600-30 MG TABLET PO PRN (14:57)
[2021-08-06] MEDS ORDERED: DEXTROSE 50% 25 GM/50 ML SYRINGE IV PRN (15:07)
[2021-08-06] MEDS: INSULIN REGULAR 100 UNIT/ML SUBCUT SCH ×2 (16:17→21:37)
[2021-08-06] MEDS ORDERED: ENOXAPARIN 30 MG/0.3 ML SYRINGE SUBCUT SCH (21:00)
[2021-08-06] MEDS: ceFAZolin 1,000 MG VIAL INTRAPERIT SCH (21:38)
[2021-08-07 05:45] LABS: Basophils % 0.3 % (0.0-0.8); Eosinophils # 0.5 10*3/uL (0.0-0.87); Eosinophils % 8.5 % (0.00-10.9); Hematocrit 26.7 VOL% (35.7-47.0); Hemoglobin 8.9 GM/DL (12.0-16.0); Immature Granulocytes % 0.3 %; Immature Granulocytes Absolute 0.02 #; Lymphocytes # 1.2 10*3/uL (1.4-4.0); Lymphocytes % 19.7 % (21.3-54.2); Mean Corpuscular HGB Conc 33.3 GM/DL (32-36); Mean Corpuscular Volume 95.7 FL (87-102); Mean Platelet Volume 10.4 FL (9.6-12.0); Monocytes % 6.4 % (1.7-12.7); Neutrophils % 64.8 % (38.7-73.9); Platelet Count 251 T/CUMM (130-400); Red Blood Count 2.79 MC/CUMM (3.8-5.5); Red Cell Distribution Width 15.6 % (9.3-17.3); White Blood Count 5.9 T/CUMM (4-12)
[2021-08-07 06:14] LABS: Calcium 6.9 MG/DL (8.5-10.1); Osmolality,Calculated 297.1 MOS/KG (273-304)
[2021-08-07 06:18] LABS: Potassium 2.5 MMOL/L (3.5-5.1)
[2021-08-07] MEDS ORDERED: POTASSIUM CHLORIDE 20 MEQ TABLET PO ONE ×2 (06:23→15:27)
[2021-08-07] MEDS: INSULIN REGULAR 100 UNIT/ML SUBCUT SCH ×4 (07:59→22:11)
[2021-08-07] MEDS: HEPARIN 1,000 UNIT/1 ML VIAL IV SCH ×3 (14:14→23:05)
[2021-08-07] MEDS: WARFARIN 3 MG TABLET PO SCH (22:11)
[2021-08-07] MEDS: ceFAZolin 1,000 MG VIAL INTRAPERIT SCH (23:05)
[2021-08-07] MEDS: GABAPENTIN 300 MG CAPSULE PO SCH (23:06)
[2021-08-08] MEDS: LEVOTHYROXINE 88 MCG TABLET PO SCH (11:11)
[2021-08-08] MEDS: POTASSIUM CHLORIDE 20 MEQ TABLET PO SCH ×2 (11:27→21:19)
[2021-08-08] MEDS: MULTIVITAMIN (CENTRUM) TABLET PO SCH (11:27)
[2021-08-08] MEDS: HEPARIN 1,000 UNIT/1 ML VIAL IV SCH ×4 (11:28→21:00)
[2021-08-08] MEDS: INSULIN REGULAR 100 UNIT/ML SUBCUT SCH ×4 (11:28→21:20)
[2021-08-08] MEDS: ceFAZolin 1,000 MG VIAL INTRAPERIT SCH (21:00)
[2021-08-08] MEDS: GABAPENTIN 300 MG CAPSULE PO SCH (21:19)
[2021-08-08] MEDS: WARFARIN 3 MG TABLET PO SCH (21:19)
[2021-08-09 05:57] LABS: Calcium 7.3 MG/DL (8.5-10.1); Osmolality,Calculated 297.1 MOS/KG (273-304); Potassium 3.5 MMOL/L (3.5-5.1)
[2021-08-09] MEDS: LEVOTHYROXINE 88 MCG TABLET PO SCH (06:43)
[2021-08-09] MEDS: MULTIVITAMIN (CENTRUM) TABLET PO SCH (08:24)
[2021-08-09] MEDS: INSULIN REGULAR 100 UNIT/ML SUBCUT SCH ×2 (08:24→12:04)
[2021-08-09] MEDS: POTASSIUM CHLORIDE 20 MEQ TABLET PO SCH (08:24)
[2021-08-09 08:42] LABS: INR 1.2
[2021-08-09] MEDS ORDERED: MAGNESIUM SULF RIDER 2 GM/50 ML PREMIX IV ONE (11:00)
[2021-08-09] MEDS: HEPARIN 1,000 UNIT/1 ML VIAL IV SCH (11:35)
[2021-08-09 12:07] VITALS: BP 130/51
== END 2021-08-09 13:55 | disposition home or self-care (01) | DRG 919 ==
LOC: SUATTDRO 13:56 → N.5E 13:56
PROVIDERS: ADMIT Internal Medicine; ATTEND Internal Medicine

== ENCOUNTER 2022-05-02 13:23 | Inpatient (IN) ==
[2022-05-02] MEDS ORDERED: hydrALAZINE 20 MG/1 ML VIAL IV PRN (13:47)
[2022-05-02] MEDS ORDERED: ALUMINUM/MAGNES/SIMETH MAX STR 30 ML UDCUP PO PRN (13:47)
[2022-05-02] MEDS ORDERED: ACETAMINOPHEN 325 MG TABLET PO PRN (13:47)
[2022-05-02] MEDS ORDERED: guaiFENesin/DM ER 600-30 MG TABLET PO PRN (13:47)
[2022-05-02] MEDS ORDERED: diphenhydrAMINE CAP 25 MG CAPSULE PO PRN (13:47)
[2022-05-02] MEDS ORDERED: PROMETHAZINE 25 MG TABLET PO PRN (13:47)
[2022-05-02] MEDS ORDERED: DOCUSATE SODIUM 100 MG CAPSULE PO PRN (13:47)
[2022-05-02] MEDS ORDERED: ZALEPLON 5 MG CAPSULE PO PRN (13:47)
[2022-05-02] MEDS ORDERED: HEPARIN/NACL 0.9% 2 UNITS/ML 3,000 UNIT/1,500 ML BAG IV ONE (14:01)
[2022-05-02] MEDS ORDERED: HEPARIN/NACL 0.9% 2 UNITS/ML 1,000 UNIT/500 ML BAG IV ONE ×3 (14:13→15:42)
[2022-05-02 14:28] LABS: Basophils % 0.3 % (0.0-0.8); Eosinophils % 0.3 % (0.00-10.9); Hematocrit 26.4 VOL% (35.7-47.0); Hemoglobin 8.9 GM/DL (12.0-16.0); Immature Granulocytes % 0.5 %; Immature Granulocytes Absolute 0.08 #; Lymphocytes # 1.2 10*3/uL (1.4-4.0); Mean Corpuscular HGB Conc 33.7 GM/DL (32-36); Mean Corpuscular Volume 98.5 FL (87-102); Mean Platelet Volume 10.6 FL (9.6-12.0); Monocytes # 0.9 10*3/uL (0.11-0.8); Neutrophils % 84.9 % (38.7-73.9); Platelet Count 213 T/CUMM (130-400); Red Blood Count 2.68 MC/CUMM (3.8-5.5); White Blood Count 15.4 T/CUMM (4-12)
[2022-05-02] MEDS ORDERED: MIDAZOLAM 2 MG/2 ML VIAL ONE ×2 (14:41→15:02)
[2022-05-02] MEDS ORDERED: fentaNYL 100 MCG/2 ML VIAL ONE ×2 (14:41→17:00)
[2022-05-02 14:45] LABS: PT Patient Result 110.3 SECS (10.1-12.1)
[2022-05-02 14:50] LABS: INR 11.9
[2022-05-02 14:51] LABS: Albumin 0.9 G/DL (3.4-5.0); Bilirubin,Total 0.5 MG/DL (0.20-1.00); Osmolality,Calculated 284.4 MOS/KG (273-304); Total Protein 5.2 G/DL (6.4-8.2)
[2022-05-02 14:55] LABS: Calcium 5.8 MG/DL (8.5-10.1); Potassium 2.1 MMOL/L (3.5-5.1)
[2022-05-02] MEDS ORDERED: POTASSIUM CHLORIDE RIDER 10 MEQ/100 ML PREMIX IV ONE ×2 (14:56→16:51)
[2022-05-02 15:43] LABS: PT Patient Result 112.7 SECS (10.1-12.1)
[2022-05-02 15:45] LABS: INR 12.2
[2022-05-02] MEDS ORDERED: MAGNESIUM SULF RIDER 4 GM/100 ML PREMIX IV PRN (15:55)
[2022-05-02] MEDS ORDERED: MORPHINE 10 MG/1 ML VIAL ONE (17:15)
[2022-05-02] MEDS ORDERED: GLUCAGON 1 MG VIAL IM PRN (17:22)
[2022-05-02] MEDS ORDERED: DEXTROSE 10% 250 ML BAG IV PRN (17:25)
[2022-05-02 17:33] LABS: PT Patient Result 133.1 SECS (10.1-12.1)
[2022-05-02 17:34] LABS: INR 14.6
[2022-05-02] MEDS ORDERED: PHYTONADIONE 10 MG/1 ML AMP ONE (17:37)
[2022-05-02] MEDS ORDERED: SODIUM CHLOR 0.9% KCL 40 MEQ 40 MEQ/1,000 ML BAG IV SCH (18:00)
[2022-05-02] MEDS ORDERED: PHYTONADIONE INJ 10 MG in SODIUM CHLORIDE 0.9% 50 ML IV ONE (18:00)
[2022-05-02] MEDS: MORPHINE 2 MG/1 ML SYRINGE IV PRN ×2 (18:06→19:17)
[2022-05-02] MEDS ORDERED: POTASSIUM CHLORIDE 20 MEQ TABLET PO ONE (18:16)
[2022-05-02] MEDS: POTASSIUM CHLORIDE RIDER 10 MEQ/100 ML PREMIX IV SCH ×4 (18:36→18:41)
[2022-05-02] MEDS: INSULIN LISPRO 100 UNIT/ML SUBCUT SCH ×2 (18:44→20:51)
[2022-05-03] MEDS: POTASSIUM CHLORIDE 20 MEQ/10 ML VIAL INTRAPERIT SCH ×4 (00:26→18:19)
[2022-05-03] MEDS: MORPHINE 2 MG/1 ML SYRINGE IV PRN ×2 (00:26→20:45)
[2022-05-03 03:49] LABS: Basophils % 0.2 % (0.0-0.8); Eosinophils # 0.3 10*3/uL (0.0-0.87); Eosinophils % 2.3 % (0.00-10.9); Hematocrit 24.9 VOL% (35.7-47.0); Hemoglobin 8.4 GM/DL (12.0-16.0); Immature Granulocytes % 0.4 %; Immature Granulocytes Absolute 0.05 #; Lymphocytes # 1.3 10*3/uL (1.4-4.0); Mean Corpuscular HGB Conc 33.7 GM/DL (32-36); Mean Corpuscular Volume 98.4 FL (87-102); Mean Platelet Volume 10.5 FL (9.6-12.0); Monocytes # 0.8 10*3/uL (0.11-0.8); Monocytes % 6.4 % (1.7-12.7); Neutrophils % 80.7 % (38.7-73.9); Platelet Count 198 T/CUMM (130-400); Red Blood Count 2.53 MC/CUMM (3.8-5.5); Red Cell Distribution Width 14.6 % (9.3-17.3); White Blood Count 12.7 T/CUMM (4-12)
[2022-05-03 04:04] LABS: INR 1.7; PT Patient Result 18.5 SECS (10.1-12.1); Partial Thromboplastin Time 61.7 SECS (23.7-32.9)
[2022-05-03 04:10] LABS: Phosphorous 4.8 MG/DL (2.5-4.9)
[2022-05-03 04:11] LABS: Albumin 0.8 G/DL (3.4-5.0); Bilirubin,Total 0.6 MG/DL (0.20-1.00); Calcium 5.9 MG/DL (8.5-10.1); Osmolality,Calculated 279.2 MOS/KG (273-304); Risk Ratio 3.93; Total Protein 4.8 G/DL (6.4-8.2); VLDL Cholesterol 25.4 MG/DL
[2022-05-03] MEDS: MAGNESIUM SULF RIDER 2 GM/50 ML PREMIX IV PRN (04:23)
[2022-05-03] MEDS: INSULIN LISPRO 100 UNIT/ML SUBCUT SCH ×4 (07:49→20:57)
[2022-05-03] MEDS: PANTOPRAZOLE 40 MG TABLET PO SCH (08:10)
[2022-05-03] MEDS: POTASSIUM CHLORIDE RIDER 10 MEQ/100 ML PREMIX IV PRN ×3 (08:20→14:00)
[2022-05-03] MEDS: INSULIN GLARGINE 100 UNIT/ML SUBCUT SCH (11:43)
[2022-05-03] MEDS ORDERED: VANCOMYCIN INJ 2,000 MG in SODIUM CHLORIDE 0.9% 500 ML IV ONE (14:00)
[2022-05-03] MEDS: CALCIUM (CARBONATE) 500 MG TABLET PO SCH ×2 (14:25→20:30)
[2022-05-03] MEDS ORDERED: POTASSIUM CHLORIDE 20 MEQ/10 ML VIAL INTRAPERIT SCH (16:30)
[2022-05-03] MEDS: SODIUM BICARBONATE 650 MG TABLET PO SCH (20:30)
[2022-05-03] MEDS: GABAPENTIN 300 MG CAPSULE PO SCH (20:30)
[2022-05-04] MEDS: POTASSIUM CHLORIDE 20 MEQ/10 ML VIAL INTRAPERIT SCH ×4 (01:00→20:38)
[2022-05-04 04:08] LABS: Basophils % 0.2 % (0.0-0.8); Eosinophils # 0.3 10*3/uL (0.0-0.87); Eosinophils % 2.4 % (0.00-10.9); Hematocrit 28.6 VOL% (35.7-47.0); Hemoglobin 9.2 GM/DL (12.0-16.0); Immature Granulocytes % 0.5 %; Immature Granulocytes Absolute 0.06 #; Lymphocytes # 1.1 10*3/uL (1.4-4.0); Lymphocytes % 8.9 % (21.3-54.2); Mean Corpuscular HGB Conc 32.2 GM/DL (32-36); Mean Corpuscular Volume 103.2 FL (87-102); Mean Platelet Volume 11.2 FL (9.6-12.0); Monocytes # 1.1 10*3/uL (0.11-0.8); Monocytes % 8.5 % (1.7-12.7); Neutrophils % 79.5 % (38.7-73.9); Platelet Count 255 T/CUMM (130-400); Red Blood Count 2.77 MC/CUMM (3.8-5.5); Red Cell Distribution Width 14.9 % (9.3-17.3); White Blood Count 12.8 T/CUMM (4-12)
[2022-05-04 04:28] LABS: Albumin 0.8 G/DL (3.4-5.0); Bilirubin,Total 0.5 MG/DL (0.20-1.00); Osmolality,Calculated 277.2 MOS/KG (273-304); Potassium 4.4 MMOL/L (3.5-5.1); Total Protein 5.4 G/DL (6.4-8.2)
[2022-05-04 06:00] LABS: INR 1.7; PT Patient Result 17.6 SECS (10.1-12.1); Partial Thromboplastin Time 50.6 SECS (23.7-32.9)
[2022-05-04] MEDS ORDERED: LEVOTHYROXINE 88 MCG TABLET PO SCH (07:00)
[2022-05-04] MEDS: INSULIN LISPRO 100 UNIT/ML SUBCUT SCH ×4 (08:48→20:36)
[2022-05-04] MEDS: CALCIUM (CARBONATE) 500 MG TABLET PO SCH ×2 (08:49→16:51)
[2022-05-04] MEDS: PANTOPRAZOLE 40 MG TABLET PO SCH (08:49)
[2022-05-04] MEDS: SODIUM BICARBONATE 650 MG TABLET PO SCH ×2 (08:49→20:35)
[2022-05-04] MEDS ORDERED: fentaNYL 100 MCG/2 ML VIAL ONE (09:38)
[2022-05-04] MEDS ORDERED: MIDAZOLAM 2 MG/2 ML VIAL ONE (09:40)
[2022-05-04] MEDS: INSULIN GLARGINE 100 UNIT/ML SUBCUT SCH (09:52)
[2022-05-04] MEDS ORDERED: SEVOFLURANE 1 UNIT/15 MINUTE INH ONE (10:52)
[2022-05-04] MEDS ORDERED: propofoL 200 MG/20 ML VIAL IV ONE (10:52)
[2022-05-04] MEDS ORDERED: ONDANSETRON 4 MG/2 ML VIAL ONE (10:52)
[2022-05-04] MEDS ORDERED: ETOMIDATE 40 MG/20 ML VIAL IV ONE (10:52)
[2022-05-04] MEDS ORDERED: LIDOCAINE 2% 5 ML VIAL ONE (10:52)
[2022-05-04] MEDS ORDERED: PHENYLEPHRINE 1 MG/10 ML SYRINGE IV ONE (10:53)
[2022-05-04] MEDS ORDERED: KETOROLAC 30 MG/1 ML VIAL ONE (11:21)
[2022-05-04] MEDS ORDERED: MEPERIDINE 50 MG/1 ML VIAL ONE (11:42)
[2022-05-04] MEDS ORDERED: DEXTROSE 50% 25 GM/50 ML VIAL IV PRN (12:59)
[2022-05-04] MEDS ORDERED: GLUCAGON 1 MG VIAL IM PRN (12:59)
[2022-05-04] MEDS: GABAPENTIN 300 MG CAPSULE PO SCH (20:35)
[2022-05-04] MEDS: MORPHINE 2 MG/1 ML SYRINGE IV PRN (21:04)
[2022-05-05] MEDS: POTASSIUM CHLORIDE 20 MEQ/10 ML VIAL INTRAPERIT SCH (03:00)
[2022-05-05 04:50] LABS: Basophils % 0.2 % (0.0-0.8); Eosinophils # 0.5 10*3/uL (0.0-0.87); Eosinophils % 5.5 % (0.00-10.9); Hematocrit 28.1 VOL% (35.7-47.0); Hemoglobin 8.6 GM/DL (12.0-16.0); Immature Granulocytes % 0.5 %; Immature Granulocytes Absolute 0.04 #; Lymphocytes # 0.9 10*3/uL (1.4-4.0); Lymphocytes % 10.2 % (21.3-54.2); Mean Corpuscular HGB Conc 30.6 GM/DL (32-36); Mean Corpuscular Volume 107.3 FL (87-102); Mean Platelet Volume 10.8 FL (9.6-12.0); Monocytes # 0.7 10*3/uL (0.11-0.8); Monocytes % 8.2 % (1.7-12.7); Neutrophils % 75.4 % (38.7-73.9); Platelet Count 294 T/CUMM (130-400); Red Blood Count 2.62 MC/CUMM (3.8-5.5); Red Cell Distribution Width 14.9 % (9.3-17.3); White Blood Count 8.7 T/CUMM (4-12)
[2022-05-05 05:07] LABS: Calcium 7.8 MG/DL (8.5-10.1); Osmolality,Calculated 285.1 MOS/KG (273-304)
[2022-05-05 05:11] LABS: Potassium 7.1 MMOL/L (3.5-5.1)
[2022-05-05] MEDS ORDERED: INSULIN REGULAR 10 UNIT, CALCIUM GLUCONATE 1,000 MG in DEXTROSE 10% 250 ML IV ONE (05:23)
[2022-05-05] MEDS: LEVOTHYROXINE 88 MCG TABLET PO SCH (06:47)
[2022-05-05] MEDS: CALCIUM (CARBONATE) 500 MG TABLET PO SCH ×3 (08:23→17:16)
[2022-05-05] MEDS: PANTOPRAZOLE 40 MG TABLET PO SCH (08:24)
[2022-05-05] MEDS: SODIUM BICARBONATE 650 MG TABLET PO SCH ×2 (08:24→22:10)
[2022-05-05] MEDS: INSULIN GLARGINE 100 UNIT/ML SUBCUT SCH (08:43)
[2022-05-05] MEDS: INSULIN LISPRO 100 UNIT/ML SUBCUT SCH ×4 (08:44→22:10)
[2022-05-05] MEDS ORDERED: SODIUM ZIRCONIUM CYCLOSILICATE 10 GM PACK PO ONE (14:07)
[2022-05-05] MEDS: SODIUM ZIRCONIUM CYCLOSILICATE 10 GM PACK PO SCH (22:10)
[2022-05-05] MEDS: GABAPENTIN 300 MG CAPSULE PO SCH (22:10)
[2022-05-06] MEDS: LEVOTHYROXINE 88 MCG TABLET PO SCH (05:51)
[2022-05-06 06:19] LABS: Basophils % 0.2 % (0.0-0.8); Eosinophils # 0.5 10*3/uL (0.0-0.87); Eosinophils % 5.7 % (0.00-10.9); Immature Granulocytes % 0.5 %; Immature Granulocytes Absolute 0.04 #; Lymphocytes # 1.2 10*3/uL (1.4-4.0); Lymphocytes % 14.5 % (21.3-54.2); Mean Corpuscular HGB Conc 29.6 GM/DL (32-36); Mean Corpuscular Volume 108.9 FL (87-102); Mean Platelet Volume 10.9 FL (9.6-12.0); Monocytes # 0.7 10*3/uL (0.11-0.8); Monocytes % 8.4 % (1.7-12.7); Neutrophils % 70.7 % (38.7-73.9); Platelet Count 367 T/CUMM (130-400); Red Blood Count 2.48 MC/CUMM (3.8-5.5); Red Cell Distribution Width 14.7 % (9.3-17.3); White Blood Count 8.2 T/CUMM (4-12)
[2022-05-06 06:32] LABS: INR 2.1; PT Patient Result 21.6 SECS (10.1-12.1)
[2022-05-06 06:40] LABS: Calcium 8.1 MG/DL (8.5-10.1); Osmolality,Calculated 274.5 MOS/KG (273-304); Potassium 5.9 MMOL/L (3.5-5.1)
[2022-05-06] MEDS: PANTOPRAZOLE 40 MG TABLET PO SCH (08:53)
[2022-05-06] MEDS: SODIUM ZIRCONIUM CYCLOSILICATE 10 GM PACK PO SCH ×3 (08:53→21:17)
[2022-05-06] MEDS: CALCIUM (CARBONATE) 500 MG TABLET PO SCH ×3 (08:53→17:17)
[2022-05-06] MEDS: SODIUM BICARBONATE 650 MG TABLET PO SCH ×2 (08:53→21:17)
[2022-05-06] MEDS: INSULIN GLARGINE 100 UNIT/ML SUBCUT SCH (08:54)
[2022-05-06] MEDS: MAGNESIUM SULF RIDER 2 GM/50 ML PREMIX IV PRN (08:55)
[2022-05-06] MEDS: INSULIN LISPRO 100 UNIT/ML SUBCUT SCH ×4 (08:55→21:07)
[2022-05-06] MEDS ORDERED: VANCOMYCIN INJ 1,250 MG in SODIUM CHLORIDE 0.9% 250 ML IV PRN (17:00)
[2022-05-06] MEDS: GABAPENTIN 300 MG CAPSULE PO SCH (21:17)
[2022-05-07 05:37] LABS: Basophils % 0.5 % (0.0-0.8); Eosinophils # 0.3 10*3/uL (0.0-0.87); Eosinophils % 4.9 % (0.00-10.9); Hemoglobin 7.3 GM/DL (12.0-16.0); Immature Granulocytes % 0.5 %; Immature Granulocytes Absolute 0.03 #; Lymphocytes % 15.3 % (21.3-54.2); Mean Corpuscular HGB Conc 30.4 GM/DL (32-36); Mean Corpuscular Volume 107.6 FL (87-102); Mean Platelet Volume 11.2 FL (9.6-12.0); Monocytes # 0.6 10*3/uL (0.11-0.8); Monocytes % 9.8 % (1.7-12.7); Platelet Count 273 T/CUMM (130-400); Red Blood Count 2.23 MC/CUMM (3.8-5.5); Red Cell Distribution Width 14.4 % (9.3-17.3); White Blood Count 6.3 T/CUMM (4-12)
[2022-05-07 05:54] LABS: PT Patient Result 21.2 SECS (10.1-12.1)
[2022-05-07] MEDS: LEVOTHYROXINE 88 MCG TABLET PO SCH (06:14)
[2022-05-07 06:16] LABS: Calcium 7.8 MG/DL (8.5-10.1); Osmolality,Calculated 272.5 MOS/KG (273-304)
[2022-05-07 06:22] LABS: Potassium 6.6 MMOL/L (3.5-5.1)
[2022-05-07] MEDS ORDERED: INSULIN REGULAR 10 UNIT, CALCIUM GLUCONATE 1,000 MG in DEXTROSE 10% 250 ML IV ONE (06:45)
[2022-05-07] MEDS: INSULIN LISPRO 100 UNIT/ML SUBCUT SCH ×4 (09:11→21:09)
[2022-05-07] MEDS: INSULIN GLARGINE 100 UNIT/ML SUBCUT SCH (09:11)
[2022-05-07] MEDS: SODIUM ZIRCONIUM CYCLOSILICATE 10 GM PACK PO SCH ×2 (09:11→16:30)
[2022-05-07] MEDS: CALCIUM (CARBONATE) 500 MG TABLET PO SCH ×3 (09:12→16:30)
[2022-05-07] MEDS: PANTOPRAZOLE 40 MG TABLET PO SCH (09:12)
[2022-05-07] MEDS: SODIUM BICARBONATE 650 MG TABLET PO SCH ×2 (09:12→21:08)
[2022-05-07 12:35] LABS: Calcium 8.3 MG/DL (8.5-10.1); Osmolality,Calculated 267.5 MOS/KG (273-304); Potassium 4.9 MMOL/L (3.5-5.1)
[2022-05-07] MEDS: GABAPENTIN 300 MG CAPSULE PO SCH (21:08)
[2022-05-08 06:05] LABS: Basophils % 0.2 % (0.0-0.8); Eosinophils # 0.3 10*3/uL (0.0-0.87); Eosinophils % 5.8 % (0.00-10.9); Hematocrit 23.6 VOL% (35.7-47.0); Hemoglobin 7.3 GM/DL (12.0-16.0); Immature Granulocytes % 0.5 %; Immature Granulocytes Absolute 0.03 #; Lymphocytes % 16.8 % (21.3-54.2); Mean Corpuscular HGB Conc 30.9 GM/DL (32-36); Mean Corpuscular Volume 105.8 FL (87-102); Mean Platelet Volume 9.8 FL (9.6-12.0); Monocytes # 0.6 10*3/uL (0.11-0.8); Monocytes % 10.8 % (1.7-12.7); Neutrophils % 65.9 % (38.7-73.9); Platelet Count 390 T/CUMM (130-400); Red Blood Count 2.23 MC/CUMM (3.8-5.5); Red Cell Distribution Width 14.2 % (9.3-17.3); White Blood Count 5.7 T/CUMM (4-12)
[2022-05-08] MEDS: LEVOTHYROXINE 88 MCG TABLET PO SCH (06:09)
[2022-05-08 06:13] LABS: INR 1.8; PT Patient Result 18.8 SECS (10.1-12.1)
[2022-05-08 06:24] LABS: Calcium 8.3 MG/DL (8.5-10.1); Osmolality,Calculated 271.4 MOS/KG (273-304)
[2022-05-08] MEDS: INSULIN GLARGINE 100 UNIT/ML SUBCUT SCH (08:29)
[2022-05-08] MEDS: INSULIN LISPRO 100 UNIT/ML SUBCUT SCH ×4 (08:29→20:29)
[2022-05-08] MEDS: ONDANSETRON 4 MG/2 ML VIAL IV PRN (08:33)
[2022-05-08] MEDS: SODIUM BICARBONATE 650 MG TABLET PO SCH ×2 (08:41→20:27)
[2022-05-08] MEDS: PANTOPRAZOLE 40 MG TABLET PO SCH (08:41)
[2022-05-08] MEDS: CALCIUM (CARBONATE) 500 MG TABLET PO SCH ×5 (08:42→17:25)
[2022-05-08] MEDS ORDERED: PROMETHAZINE 25 MG/1 ML VIAL IM PRN (09:19)
[2022-05-08] MEDS ORDERED: EPOETIN ALFA-EPBX 10,000 UNIT/ML VIAL SUBCUT ONE (19:30)
[2022-05-08] MEDS: GABAPENTIN 300 MG CAPSULE PO SCH (20:27)
[2022-05-09] MEDS: ONDANSETRON 4 MG/2 ML VIAL IV PRN (05:08)
[2022-05-09] MEDS: LEVOTHYROXINE 88 MCG TABLET PO SCH (06:08)
[2022-05-09 06:17] LABS: Basophils % 0.5 % (0.0-0.8); Eosinophils # 0.4 10*3/uL (0.0-0.87); Eosinophils % 5.8 % (0.00-10.9); Hematocrit 26.4 VOL% (35.7-47.0); Hemoglobin 8.3 GM/DL (12.0-16.0); Immature Granulocytes % 0.5 %; Immature Granulocytes Absolute 0.03 #; Lymphocytes % 15.5 % (21.3-54.2); Mean Corpuscular HGB Conc 31.4 GM/DL (32-36); Mean Corpuscular Volume 104.3 FL (87-102); Mean Platelet Volume 10.1 FL (9.6-12.0); Monocytes # 0.8 10*3/uL (0.11-0.8); Monocytes % 12.5 % (1.7-12.7); Neutrophils % 65.2 % (38.7-73.9); Platelet Count 476 T/CUMM (130-400); Red Blood Count 2.53 MC/CUMM (3.8-5.5); Red Cell Distribution Width 14.2 % (9.3-17.3); White Blood Count 6.2 T/CUMM (4-12)
[2022-05-09 06:44] LABS: INR 1.4; PT Patient Result 14.8 SECS (10.1-12.1)
[2022-05-09 06:57] LABS: Calcium 8.5 MG/DL (8.5-10.1); Osmolality,Calculated 266.8 MOS/KG (273-304); Potassium 3.9 MMOL/L (3.5-5.1)
[2022-05-09] MEDS: INSULIN GLARGINE 100 UNIT/ML SUBCUT SCH (08:43)
[2022-05-09] MEDS: SODIUM BICARBONATE 650 MG TABLET PO SCH (08:44)
[2022-05-09] MEDS: PANTOPRAZOLE 40 MG TABLET PO SCH (08:44)
[2022-05-09] MEDS: CALCIUM (CARBONATE) 500 MG TABLET PO SCH ×3 (08:44→16:47)
[2022-05-09] MEDS: INSULIN LISPRO 100 UNIT/ML SUBCUT SCH ×3 (08:44→16:47)
[2022-05-09] MEDS ORDERED: POLYETHYLENE GLYCOL POWDER 17 GM PACK PO SCH (09:00)
[2022-05-09] MEDS: METOCLOPRAMIDE 5 MG TABLET PO SCH ×2 (12:10→16:47)
[2022-05-09 15:49] VITALS: BP 110/52
== END 2022-05-09 18:10 | DRG 270 ==
LOC: N.ED 13:23 → N.ICU 13:48 → N.EDINP 13:49 → INTOOBSV 13:49 → N.ICU 13:55 → SUATTDRO 05-03 08:29 → N.3E 05-04 12:14
PROVIDERS: ADMIT Family Medicine; ATTEND Hospitalist

== ENCOUNTER 2022-05-14 21:54 | Inpatient (IN) ==
[2022-05-14 22:22] LABS: Basophils % 0.3 % (0.0-0.8); Eosinophils # 0.1 10*3/uL (0.0-0.87); Eosinophils % 0.4 % (0.00-10.9); Hemoglobin 8.3 GM/DL (12.0-16.0); Immature Granulocytes % 0.5 %; Immature Granulocytes Absolute 0.06 #; Lymphocytes # 1.1 10*3/uL (1.4-4.0); Lymphocytes % 9.4 % (21.3-54.2); Mean Corpuscular HGB Conc 31.9 GM/DL (32-36); Mean Corpuscular Volume 102.4 FL (87-102); Mean Platelet Volume 10.1 FL (9.6-12.0); Monocytes % 8.4 % (1.7-12.7); Platelet Count 272 T/CUMM (130-400); Red Blood Count 2.54 MC/CUMM (3.8-5.5)
[2022-05-14 22:42] LABS: Alanine Aminotransferase 11 U/L (13-56); Albumin 0.6 G/DL (3.4-5.0); Alkaline Phosphatase 301 U/L (45-117); Aspartate Amino Transferase 13 U/L (0-37); Bilirubin,Total < 0.39 MG/DL (0.20-1.00); Blood Urea Nitrogen 22 MG/DL (7-18); Calcium 8.5 MG/DL (8.5-10.1); Carbon Dioxide 31 MMOL/L (21-32); Chloride 94 MMOL/L (98-107); Glucose 153 MG/DL (74-106); Osmolality,Calculated 267.7 MOS/KG (273-304); Potassium 3.4 MMOL/L (3.5-5.1); Sodium 131 MMOL/L (136-145); Total Protein 4.9 G/DL (6.4-8.2)
[2022-05-14] MEDS ORDERED: fentaNYL 100 MCG/2 ML VIAL IV STA (22:56)
[2022-05-14 23:02] LABS: Glucose,Peritoneal Fluid 295 MG/DL; LDH,Peritoneal Fluid 94 U/L; Total Protein,Peritoneal Fluid < 1.0 G/DL
[2022-05-14] MEDS ORDERED: cefTRIAXone 1,000 MG in SODIUM CHLORIDE 0.9% 100 ML IV STA (23:38)
[2022-05-15] MEDS ORDERED: metroNIDAZOLE INJ 500 MG/100 ML PREMIX IV STA (01:52)
[2022-05-15] MEDS ORDERED: SODIUM CHLORIDE 0.9% 500 ML IV STA (02:19)
[2022-05-15] MEDS ORDERED: ZALEPLON 5 MG CAPSULE PO PRN (02:20)
[2022-05-15] MEDS ORDERED: NICOTINE 21 MG/24 HR PATCH TRANSDERM PRN (02:20)
[2022-05-15] MEDS: SODIUM CHLORIDE 0.9% 1,000 ML IV SCH ×2 (02:42→18:36)
[2022-05-15 06:10] LABS: Basophils % 0.2 % (0.0-0.8); Eosinophils # 0.2 10*3/uL (0.0-0.87); Eosinophils % 1.4 % (0.00-10.9); Hematocrit 25.6 VOL% (35.7-47.0); Hemoglobin 7.9 GM/DL (12.0-16.0); Immature Granulocytes % 0.6 %; Immature Granulocytes Absolute 0.07 #; Lymphocytes # 1.4 10*3/uL (1.4-4.0); Lymphocytes % 11.2 % (21.3-54.2); Mean Corpuscular HGB Conc 30.9 GM/DL (32-36); Mean Corpuscular Volume 105.8 FL (87-102); Mean Platelet Volume 9.7 FL (9.6-12.0); Monocytes # 1.2 10*3/uL (0.11-0.8); Monocytes % 9.4 % (1.7-12.7); Neutrophils % 77.2 % (38.7-73.9); Platelet Count 284 T/CUMM (130-400); Red Blood Count 2.42 MC/CUMM (3.8-5.5); Red Cell Distribution Width 14.9 % (9.3-17.3); White Blood Count 12.5 T/CUMM (4-12)
[2022-05-15 06:30] LABS: Osmolality,Calculated 268.5 MOS/KG (273-304); Potassium 3.7 MMOL/L (3.5-5.1)
[2022-05-15] MEDS: PANTOPRAZOLE 40 MG TABLET PO SCH (09:53)
[2022-05-15] MEDS: metroNIDAZOLE INJ 500 MG/100 ML PREMIX IV SCH ×2 (09:57→18:37)
[2022-05-15] MEDS ORDERED: GENTAMICIN 80 MG/2 ML VIAL INTRAPERIT ONE (20:00)
[2022-05-15] MEDS ORDERED: ceFAZolin 1,000 MG VIAL INTRAPERIT ONE (20:00)
[2022-05-15] MEDS: MORPHINE 2 MG/1 ML SYRINGE IV PRN ×2 (20:05→23:35)
[2022-05-15] MEDS ORDERED: cefTRIAXone 1,000 MG in SODIUM CHLORIDE 0.9% 100 ML IV SCH (21:00)
[2022-05-16] MEDS: metroNIDAZOLE INJ 500 MG/100 ML PREMIX IV SCH (01:00)
[2022-05-16] MEDS: MORPHINE 2 MG/1 ML SYRINGE IV PRN ×2 (04:10→08:40)
[2022-05-16 05:05] LABS: Basophils % 0.2 % (0.0-0.8); Eosinophils % 0.3 % (0.00-10.9); Immature Granulocytes % 0.5 %; Immature Granulocytes Absolute 0.08 #; Lymphocytes # 1.1 10*3/uL (1.4-4.0); Lymphocytes % 7.2 % (21.3-54.2); Mean Corpuscular HGB Conc 30.4 GM/DL (32-36); Mean Corpuscular Volume 104.5 FL (87-102); Mean Platelet Volume 10.2 FL (9.6-12.0); Monocytes # 1.3 10*3/uL (0.11-0.8); Monocytes % 8.6 % (1.7-12.7); Neutrophils % 83.2 % (38.7-73.9); Platelet Count 288 T/CUMM (130-400); White Blood Count 14.9 T/CUMM (4-12)
[2022-05-16 05:28] LABS: Calcium 7.6 MG/DL (8.5-10.1); Osmolality,Calculated 278.4 MOS/KG (273-304); Potassium 3.2 MMOL/L (3.5-5.1)
[2022-05-16] MEDS: PANTOPRAZOLE 40 MG TABLET PO SCH (08:30)
[2022-05-16] MEDS: ONDANSETRON 4 MG/2 ML VIAL IV PRN (11:00)
[2022-05-16] MEDS: ACETAMINOPHEN 325 MG TABLET PO PRN (12:40)
[2022-05-16] MEDS ORDERED: SODIUM CHLORIDE 0.9% 1,000 ML IV PRN (13:25)
[2022-05-16] MEDS: CALCIUM (CARBONATE) 500 MG TABLET PO SCH ×2 (16:28→20:42)
[2022-05-16] MEDS: GABAPENTIN 300 MG CAPSULE PO SCH (20:41)
[2022-05-16] MEDS: GENTAMICIN 80 MG/2 ML VIAL INTRAPERIT SCH (23:57)
[2022-05-16] MEDS: ceFAZolin 1,000 MG VIAL INTRAPERIT SCH (23:57)
[2022-05-17 04:42] LABS: Basophils % 0.2 % (0.0-0.8); Eosinophils # 0.2 10*3/uL (0.0-0.87); Eosinophils % 1.5 % (0.00-10.9); Hematocrit 22.8 VOL% (35.7-47.0); Hemoglobin 7.1 GM/DL (12.0-16.0); Immature Granulocytes % 0.6 %; Immature Granulocytes Absolute 0.08 #; Lymphocytes # 1.4 10*3/uL (1.4-4.0); Mean Corpuscular HGB Conc 31.1 GM/DL (32-36); Mean Corpuscular Volume 104.6 FL (87-102); Mean Platelet Volume 10.1 FL (9.6-12.0); Monocytes # 0.9 10*3/uL (0.11-0.8); Monocytes % 6.4 % (1.7-12.7); Neutrophils % 81.3 % (38.7-73.9); Platelet Count 261 T/CUMM (130-400); Red Blood Count 2.18 MC/CUMM (3.8-5.5); Red Cell Distribution Width 14.8 % (9.3-17.3); White Blood Count 13.7 T/CUMM (4-12)
[2022-05-17 05:08] LABS: Alanine Aminotransferase < 6 U/L (13-56); Albumin < 0.6 G/DL (3.4-5.0); Alkaline Phosphatase 211 U/L (45-117); Aspartate Amino Transferase 7 U/L (0-37); Bilirubin,Total < 0.39 MG/DL (0.20-1.00); Blood Urea Nitrogen 24 MG/DL (7-18); Calcium 7.3 MG/DL (8.5-10.1); Carbon Dioxide 30 MMOL/L (21-32); Chloride 97 MMOL/L (98-107); Glucose 295 MG/DL (74-106); Osmolality,Calculated 280.4 MOS/KG (273-304); Potassium 3.2 MMOL/L (3.5-5.1); Sodium 133 MMOL/L (136-145); Total Protein 4.3 G/DL (6.4-8.2)
[2022-05-17] MEDS: SODIUM CHLORIDE 0.9% 1,000 ML IV SCH (05:43)
[2022-05-17] MEDS: FERROUS SULFATE 325 MG TABLET PO SCH (08:59)
[2022-05-17] MEDS: PANTOPRAZOLE 40 MG TABLET PO SCH (08:59)
[2022-05-17] MEDS: CALCIUM (CARBONATE) 500 MG TABLET PO SCH ×3 (09:00→20:09)
[2022-05-17] MEDS ORDERED: ZINC OXIDE PASTE 113 GM TUBE TOP PRN (14:47)
[2022-05-17] MEDS: ACETAMINOPHEN 325 MG TABLET PO PRN (20:11)
[2022-05-18] MEDS: GENTAMICIN 80 MG/2 ML VIAL INTRAPERIT SCH (00:53)
[2022-05-18] MEDS: ceFAZolin 1,000 MG VIAL INTRAPERIT SCH (00:53)
[2022-05-18] MEDS: CALCIUM (CARBONATE) 500 MG TABLET PO SCH ×3 (09:09→20:51)
[2022-05-18] MEDS: PANTOPRAZOLE 40 MG TABLET PO SCH (09:09)
[2022-05-18] MEDS: FERROUS SULFATE 325 MG TABLET PO SCH (09:09)
[2022-05-18] MEDS: ONDANSETRON 4 MG/2 ML VIAL IV PRN (09:38)
[2022-05-18] MEDS: ACETAMINOPHEN 325 MG TABLET PO PRN (17:07)
[2022-05-18] MEDS: GABAPENTIN 300 MG CAPSULE PO SCH (20:51)
[2022-05-19] MEDS: ceFAZolin 1,000 MG VIAL INTRAPERIT SCH (00:28)
[2022-05-19] MEDS: GENTAMICIN 80 MG/2 ML VIAL INTRAPERIT SCH (00:28)
[2022-05-19 05:50] LABS: Basophils % 0.2 % (0.0-0.8); Eosinophils # 0.2 10*3/uL (0.0-0.87); Eosinophils % 1.8 % (0.00-10.9); Hematocrit 22.2 VOL% (35.7-47.0); Hemoglobin 6.9 GM/DL (12.0-16.0); Immature Granulocytes % 0.6 %; Immature Granulocytes Absolute 0.05 #; Lymphocytes # 1.1 10*3/uL (1.4-4.0); Lymphocytes % 12.4 % (21.3-54.2); Mean Corpuscular HGB Conc 31.1 GM/DL (32-36); Mean Corpuscular Volume 102.8 FL (87-102); Mean Platelet Volume 9.8 FL (9.6-12.0); Monocytes # 0.7 10*3/uL (0.11-0.8); Monocytes % 7.6 % (1.7-12.7); Neutrophils % 77.4 % (38.7-73.9); Platelet Count 295 T/CUMM (130-400); Red Blood Count 2.16 MC/CUMM (3.8-5.5); Red Cell Distribution Width 14.7 % (9.3-17.3); White Blood Count 8.7 T/CUMM (4-12)
[2022-05-19 06:21] LABS: Alanine Aminotransferase < 6 U/L (13-56); Albumin < 0.6 G/DL (3.4-5.0); Alkaline Phosphatase 248 U/L (45-117); Aspartate Amino Transferase 12 U/L (0-37); Bilirubin,Total < 0.39 MG/DL (0.20-1.00); Blood Urea Nitrogen 24 MG/DL (7-18); Calcium 8.2 MG/DL (8.5-10.1); Carbon Dioxide 28 MMOL/L (21-32); Chloride 96 MMOL/L (98-107); Glucose 205 MG/DL (74-106); Osmolality,Calculated 275.4 MOS/KG (273-304); Sodium 133 MMOL/L (136-145); Total Protein 4.5 G/DL (6.4-8.2)
[2022-05-19] MEDS: FERROUS SULFATE 325 MG TABLET PO SCH (08:09)
[2022-05-19] MEDS: PANTOPRAZOLE 40 MG TABLET PO SCH (08:09)
[2022-05-19] MEDS: CALCIUM (CARBONATE) 500 MG TABLET PO SCH ×3 (08:09→21:45)
[2022-05-19] MEDS ORDERED: BUPIVACAINE 0.5% 50 ML VIAL ONE (11:43)
[2022-05-19] MEDS ORDERED: HEPARIN 5,000 UNIT/1 ML VIAL ONE (11:45)
[2022-05-19] MEDS ORDERED: SODIUM CHLORIDE 0.9% 250 ML IV ONE (11:54)
[2022-05-19] MEDS ORDERED: fentaNYL 100 MCG/2 ML VIAL ONE (11:54)
[2022-05-19] MEDS ORDERED: propofoL 200 MG/20 ML VIAL IV ONE (11:54)
[2022-05-19] MEDS ORDERED: LIDOCAINE 2% 5 ML VIAL ONE ×2 (11:54→12:11)
[2022-05-19] MEDS ORDERED: MIDAZOLAM 2 MG/2 ML VIAL ONE (11:55)
[2022-05-19] MEDS ORDERED: KETAMINE 500 MG/10 ML VIAL ONE (11:55)
[2022-05-19] MEDS ORDERED: SODIUM CHLORIDE 0.9% 250 ML IV SCH (12:00)
[2022-05-20 05:46] LABS: Basophils % 0.3 % (0.0-0.8); Eosinophils # 0.4 10*3/uL (0.0-0.87); Eosinophils % 5.3 % (0.00-10.9); Hemoglobin 7.1 GM/DL (12.0-16.0); Immature Granulocytes % 0.4 %; Immature Granulocytes Absolute 0.03 #; Lymphocytes # 0.7 10*3/uL (1.4-4.0); Mean Corpuscular HGB Conc 32.3 GM/DL (32-36); Mean Corpuscular Volume 103.3 FL (87-102); Mean Platelet Volume 9.8 FL (9.6-12.0); Monocytes # 0.7 10*3/uL (0.11-0.8); Monocytes % 9.6 % (1.7-12.7); Neutrophils % 74.4 % (38.7-73.9); Platelet Count 287 T/CUMM (130-400); Red Blood Count 2.13 MC/CUMM (3.8-5.5); Red Cell Distribution Width 14.8 % (9.3-17.3)
[2022-05-20 06:17] LABS: Alanine Aminotransferase < 6 U/L (13-56); Albumin 0.6 G/DL (3.4-5.0); Alkaline Phosphatase 297 U/L (45-117); Aspartate Amino Transferase 14 U/L (0-37); Bilirubin,Total < 0.39 MG/DL (0.20-1.00); Blood Urea Nitrogen 25 MG/DL (7-18); Calcium 7.8 MG/DL (8.5-10.1); Carbon Dioxide 31 MMOL/L (21-32); Chloride 98 MMOL/L (98-107); Glucose 105 MG/DL (74-106); Osmolality,Calculated 273.1 MOS/KG (273-304); Potassium 2.8 MMOL/L (3.5-5.1); Sodium 135 MMOL/L (136-145)
[2022-05-20 07:18] LABS: Immunoglobulin A (Chem) 275 MG/DL (70-400); Immunoglobulin G (Chem) 1580 MG/DL (700-1600); Immunoglobulin M (Chem) 89 MG/DL (40-230); Total Protein (Chem) 5.1 G/DL (6.4-8.3)
[2022-05-20 08:59] LABS: Alpha 1 (SPE) 0.4 G/DL (0.1-0.4); Alpha 1 (SPE) Rel % 7.2 %; Alpha 2 (SPE) 0.9 G/DL (0.4-1.0); Alpha 2 (SPE) Rel % 16.9 %; Beta (SPE) 0.6 G/DL (0.5-1.1); Beta (SPE) Rel % 11.4 %; Gamma (SPE) 2.3 G/DL (0.7-1.7); Gamma (SPE) Rel % 45.5 %
[2022-05-20] MEDS ORDERED: HEPARIN 10,000 UNIT/10 ML VIAL IV PRN (10:26)
[2022-05-20] MEDS ORDERED: EPOETIN ALFA-EPBX 10,000 UNIT/ML VIAL IV SCH (11:30)
[2022-05-20 11:51] LABS: Hepatitis B Surface Ag Quant < 0.10 Index; Hepatitis B Surface Ag Result Non-Reactive (NonReactive)
[2022-05-20] MEDS: CALCIUM (CARBONATE) 500 MG TABLET PO SCH ×3 (13:10→21:21)
[2022-05-20] MEDS: PANTOPRAZOLE 40 MG TABLET PO SCH (13:10)
[2022-05-20] MEDS: FERROUS SULFATE 325 MG TABLET PO SCH (13:11)
[2022-05-20] MEDS: GABAPENTIN 300 MG CAPSULE PO SCH (21:21)
[2022-05-21 05:39] LABS: Calcium 7.6 MG/DL (8.5-10.1); Osmolality,Calculated 283.3 MOS/KG (273-304); Potassium 2.9 MMOL/L (3.5-5.1)
[2022-05-21] MEDS: PANTOPRAZOLE 40 MG TABLET PO SCH (11:49)
[2022-05-21] MEDS: FERROUS SULFATE 325 MG TABLET PO SCH (11:49)
[2022-05-21] MEDS: CALCIUM (CARBONATE) 500 MG TABLET PO SCH ×3 (11:49→20:46)
[2022-05-21] MEDS ORDERED: MAGNESIUM SULF RIDER 2 GM in PREMIX 1 EACH IV ONE (15:40)
[2022-05-21] MEDS: POTASSIUM BICARB EFFERVESCENT 20 MEQ TAB.EFF PO SCH ×2 (17:07→23:53)
[2022-05-22 06:30] LABS: Osmolality,Calculated 277.4 MOS/KG (273-304); Potassium 4.2 MMOL/L (3.5-5.1)
[2022-05-22] MEDS: FERROUS SULFATE 325 MG TABLET PO SCH (09:48)
[2022-05-22] MEDS: CALCIUM (CARBONATE) 500 MG TABLET PO SCH ×3 (09:48→20:57)
[2022-05-22] MEDS: PANTOPRAZOLE 40 MG TABLET PO SCH (09:49)
[2022-05-22] MEDS: ONDANSETRON 4 MG/2 ML VIAL IV PRN (14:02)
[2022-05-22] MEDS: GABAPENTIN 300 MG CAPSULE PO SCH (20:57)
[2022-05-23] MEDS: ONDANSETRON 4 MG/2 ML VIAL IV PRN (00:49)
[2022-05-23 04:30] LABS: Basophils % 0.5 % (0.0-0.8); Eosinophils # 0.4 10*3/uL (0.0-0.87); Eosinophils % 5.4 % (0.00-10.9); Hematocrit 21.7 VOL% (35.7-47.0); Hemoglobin 6.5 GM/DL (12.0-16.0); Immature Granulocytes % 0.5 %; Immature Granulocytes Absolute 0.03 #; Lymphocytes % 15.2 % (21.3-54.2); Mean Corpuscular Volume 106.4 FL (87-102); Mean Platelet Volume 10.4 FL (9.6-12.0); Monocytes # 0.6 10*3/uL (0.11-0.8); Monocytes % 9.3 % (1.7-12.7); Neutrophils % 69.1 % (38.7-73.9); Platelet Count 192 T/CUMM (130-400); Red Blood Count 2.04 MC/CUMM (3.8-5.5); Red Cell Distribution Width 14.8 % (9.3-17.3); White Blood Count 6.4 T/CUMM (4-12)
[2022-05-23 04:48] LABS: Calcium 8.7 MG/DL (8.5-10.1); Osmolality,Calculated 279.3 MOS/KG (273-304); Potassium 4.2 MMOL/L (3.5-5.1)
[2022-05-23] MEDS ORDERED: SODIUM CHLORIDE 0.9% 1,000 ML IV PRN ×2 (07:17→12:17)
[2022-05-23] MEDS: PANTOPRAZOLE 40 MG TABLET PO SCH (09:15)
[2022-05-23] MEDS: CALCIUM (CARBONATE) 500 MG TABLET PO SCH ×2 (09:15→16:55)
[2022-05-23] MEDS: FERROUS SULFATE 325 MG TABLET PO SCH (09:15)
[2022-05-23 11:42] LABS: Kappa Free Light Chain 17.8 mg/dL; Lambda Free Light Chain 21.1 mg/dL
[2022-05-23 15:10] LABS: Hematocrit 28.1 VOL% (35.7-47.0); Hemoglobin 8.9 GM/DL (12.0-16.0)
[2022-05-23 16:15] VITALS: BP 171/76
== END 2022-05-23 16:40 | DRG 907 ==
LOC: EDUNIT# → EDBD → N.ED 21:54 → SUATTDRO 05-15 02:20 → N.EDINP 05-15 02:20 → N.TELEN 05-15 04:03
PROVIDERS: ADMIT Internal Medicine; ATTEND Emergency Medicine

== ENCOUNTER 2022-05-31 07:40 | Inpatient (IN) ==
[2022-05-31 08:08] LABS: Hematocrit 23.9 VOL% (35.7-47.0); Hemoglobin 7.4 GM/DL (12.0-16.0)
[2022-05-31] MEDS ORDERED: ceFAZolin 1,000 MG VIAL ONE (08:19)
[2022-05-31] MEDS: SODIUM CHLORIDE 0.9% 250 ML IV SCH ×3 (08:27→18:47)
[2022-05-31] MEDS ORDERED: MIDAZOLAM 2 MG/2 ML VIAL ONE (08:36)
[2022-05-31] MEDS ORDERED: fentaNYL 100 MCG/2 ML VIAL ONE (08:36)
[2022-05-31] MEDS ORDERED: PHENYLEPHRINE 1 MG/10 ML SYRINGE IV ONE (09:20)
[2022-05-31] MEDS ORDERED: ONDANSETRON 4 MG/2 ML VIAL ONE (09:20)
[2022-05-31] MEDS ORDERED: ETOMIDATE 40 MG/20 ML VIAL IV ONE (09:20)
[2022-05-31] MEDS ORDERED: SEVOFLURANE 1 UNIT/15 MINUTE INH ONE (09:20)
[2022-05-31] MEDS ORDERED: LIDOCAINE 2% 5 ML VIAL ONE (09:20)
[2022-05-31] MEDS ORDERED: propofoL 200 MG/20 ML VIAL IV ONE (09:20)
[2022-05-31] MEDS ORDERED: BISACODYL 5 MG TABLET PO PRN (09:44)
[2022-05-31] MEDS ORDERED: KETOROLAC 10 MG TABLET PO PRN (09:44)
[2022-05-31] MEDS ORDERED: DEXTROSE 10% 250 ML BAG IV PRN (09:44)
[2022-05-31] MEDS ORDERED: GLUCAGON 1 MG VIAL IM PRN (09:44)
[2022-05-31] MEDS ORDERED: ONDANSETRON 4 MG/2 ML VIAL IV PRN (09:58)
[2022-05-31] MEDS: HYDROmorphone 1 MG/1 ML SYRINGE IV PRN ×7 (10:02→20:18)
[2022-05-31] MEDS ORDERED: HYDROmorphone 1 MG/1 ML SYRINGE IV PRN (13:21)
[2022-05-31] MEDS: INSULIN REGULAR 100 UNIT/ML SUBCUT SCH ×3 (13:56→20:58)
[2022-05-31] MEDS ORDERED: HEPARIN LOCK FLUSH 500 UNIT/5 ML SYRINGE IV ONE (14:46)
[2022-05-31] MEDS ORDERED: HEPARIN 10,000 UNIT/10 ML VIAL IV PRN (14:53)
[2022-06-01] MEDS: HYDROmorphone 1 MG/1 ML SYRINGE IV PRN ×5 (04:21→22:41)
[2022-06-01 05:25] LABS: Basophils % 0.4 % (0.0-0.8); Eosinophils # 0.2 10*3/uL (0.0-0.87); Eosinophils % 1.9 % (0.00-10.9); Hematocrit 23.6 VOL% (35.7-47.0); Hemoglobin 7.3 GM/DL (12.0-16.0); Immature Granulocytes % 0.6 %; Immature Granulocytes Absolute 0.06 #; Lymphocytes # 0.8 10*3/uL (1.4-4.0); Lymphocytes % 7.6 % (21.3-54.2); Mean Corpuscular HGB Conc 30.9 GM/DL (32-36); Mean Corpuscular Volume 104.9 FL (87-102); Monocytes # 1.1 10*3/uL (0.11-0.8); Monocytes % 10.6 % (1.7-12.7); Neutrophils % 78.9 % (38.7-73.9); Platelet Count 221 T/CUMM (130-400); Red Blood Count 2.25 MC/CUMM (3.8-5.5); Red Cell Distribution Width 16.1 % (9.3-17.3); White Blood Count 10.4 T/CUMM (4-12)
[2022-06-01 05:45] LABS: Calcium 7.4 MG/DL (8.5-10.1); Osmolality,Calculated 273.8 MOS/KG (273-304); Potassium 4.6 MMOL/L (3.5-5.1)
[2022-06-01] MEDS: INSULIN REGULAR 100 UNIT/ML SUBCUT SCH ×4 (07:52→20:06)
[2022-06-01] MEDS: ENOXAPARIN 30 MG/0.3 ML SYRINGE SUBCUT SCH (08:02)
[2022-06-01] MEDS: SODIUM CHLORIDE 0.9% 250 ML IV SCH (08:18)
[2022-06-01] MEDS ORDERED: HEPARIN 10,000 UNIT/10 ML VIAL IV SCH (09:00)
[2022-06-01] MEDS ORDERED: SODIUM CHLORIDE 0.9% 1,000 ML IV PRN (10:53)
[2022-06-01] MEDS ORDERED: KETOROLAC 10 MG TABLET PO SCH (18:00)
[2022-06-01] MEDS: ACETAMINOPHEN 325 MG TABLET PO PRN (18:30)
[2022-06-02 00:24] LABS: Hematocrit 33.4 VOL% (35.7-47.0); Hemoglobin 10.8 GM/DL (12.0-16.0)
[2022-06-02] MEDS: HYDROmorphone 1 MG/1 ML SYRINGE IV PRN ×4 (05:47→17:29)
[2022-06-02] MEDS: ENOXAPARIN 30 MG/0.3 ML SYRINGE SUBCUT SCH (08:54)
[2022-06-02] MEDS: INSULIN REGULAR 100 UNIT/ML SUBCUT SCH ×4 (08:54→21:03)
[2022-06-03] MEDS: HYDROmorphone 1 MG/1 ML SYRINGE IV PRN ×5 (00:14→23:19)
[2022-06-03] MEDS: INSULIN REGULAR 100 UNIT/ML SUBCUT SCH ×4 (08:10→20:08)
[2022-06-03] MEDS: ENOXAPARIN 30 MG/0.3 ML SYRINGE SUBCUT SCH (08:10)
[2022-06-03] MEDS: traMADol 50 MG TABLET PO PRN (12:12)
[2022-06-04] MEDS: HYDROmorphone 1 MG/1 ML SYRINGE IV PRN ×6 (05:19→21:27)
[2022-06-04] MEDS: ENOXAPARIN 30 MG/0.3 ML SYRINGE SUBCUT SCH (08:15)
[2022-06-04] MEDS: INSULIN REGULAR 100 UNIT/ML SUBCUT SCH ×4 (09:09→20:17)
[2022-06-05] MEDS: HYDROmorphone 1 MG/1 ML SYRINGE IV PRN ×4 (02:04→18:30)
[2022-06-05] MEDS: ONDANSETRON 4 MG/2 ML VIAL IV PRN (04:43)
[2022-06-05] MEDS: ENOXAPARIN 30 MG/0.3 ML SYRINGE SUBCUT SCH (08:44)
[2022-06-05] MEDS: INSULIN REGULAR 100 UNIT/ML SUBCUT SCH ×4 (08:45→20:50)
[2022-06-05] MEDS: traMADol 50 MG TABLET PO PRN (11:21)
[2022-06-06] MEDS: HYDROmorphone 1 MG/1 ML SYRINGE IV PRN ×4 (00:22→21:35)
[2022-06-06] MEDS: ONDANSETRON 4 MG/2 ML VIAL IV PRN (04:55)
[2022-06-06] MEDS: INSULIN REGULAR 100 UNIT/ML SUBCUT SCH ×4 (08:09→20:23)
[2022-06-06] MEDS: traMADol 50 MG TABLET PO PRN (08:26)
[2022-06-06] MEDS: ENOXAPARIN 30 MG/0.3 ML SYRINGE SUBCUT SCH (08:26)
[2022-06-07] MEDS: HYDROmorphone 1 MG/1 ML SYRINGE IV PRN (02:46)
[2022-06-07] MEDS: ENOXAPARIN 30 MG/0.3 ML SYRINGE SUBCUT SCH (08:41)
[2022-06-07] MEDS: traMADol 50 MG TABLET PO PRN ×2 (08:42→20:22)
[2022-06-07] MEDS: INSULIN REGULAR 100 UNIT/ML SUBCUT SCH ×4 (08:42→21:43)
[2022-06-07] MEDS: ACETAMINOPHEN 325 MG TABLET PO PRN (13:32)
[2022-06-07] MEDS ORDERED: TUBERCULIN SKIN TEST 0.1 ML SYRINGE INTRADERM ONE (14:03)
[2022-06-07] MEDS: ONDANSETRON 4 MG/2 ML VIAL IV PRN (20:26)
[2022-06-08] MEDS: ONDANSETRON 4 MG/2 ML VIAL IV PRN (04:43)
[2022-06-08 08:41] VITALS: BP 169/75
[2022-06-08] MEDS: ENOXAPARIN 30 MG/0.3 ML SYRINGE SUBCUT SCH (09:11)
[2022-06-08] MEDS: INSULIN REGULAR 100 UNIT/ML SUBCUT SCH (10:28)
== END 2022-06-08 11:15 | DRG 474 ==
LOC: N.OR 07:40 → N.SDSINP 07:42 → N.5E 13:43
PROVIDERS: ADMIT Surgery; ATTEND Surgery